=== PATIENT | female | born 1945 | race Caucasian/White ===

== ENCOUNTER 2021-12-04 10:39 | Observation (INO) | payer MEDICARE ==
[~2021-12-04] VITALS: Ht 165.1 cm; Wt 68.0 kg
[~2021-12-04 10:39] MED LIST: CEPHALEXIN500 MG PO; CIPRO500 MG OR; CRESTOR40 MG PO; DILTIAZEM180 M1 PO; EQ LANSOPRAZOLE15 MG PO; GLIPIZIDE10 MG PO; HEADACHE RELIEF PO; HUMULIN R1 M1 SC; HUMULIN R1 ML; HUMULIN R1 ML SC; HYDROCHLOROT25 MG PO; HYDROCO/APAP1 TA9 PO; ISOSORB MONO30 MG; ISOSORB MONO30 MG PO; ISOSORBIDE MONO60 MG PO; KEFLEX500 MG PO; KLOR-CON M2020 MEQ PO; LANTUS100 MG/ML SC; LASIX 40 MG40 MG/TAB PO; LASIX40 MG PO; LISINOPRIL20 MG PO; LORTAB 7.5 PO; LYRICA50 MG PO; LYRICA75 MG PO; METFORMIN1000 MG PO; METFORMIN500 MG PO; NAPROXEN375 MG OR; NEXIUM40 MG PO; NOVOLIN 70/30 SC; NOVOLIN R SC; PYRIDIUM200 MG OR
--- NOTE | 2021-12-04 11:10 | NUR ---
PATIENT ASSISTED OUT OF VEHICLE INTO WHEELCHAIR AND ESCORTED TO ROOM IN NO ACUTE DISTRESS. PATIENT TRANSFERRED TO [facility]. VSS. NOTIFIED OF PATIENT STATUS.
[2021-12-04] MEDS ORDERED: DICYCLOMINE10 MG PO (11:35)
[2021-12-04] MEDS ORDERED: METOPROLOL SUCC50 MG PO (11:35)
[2021-12-04] MEDS ORDERED: IRON325 M1 (11:36)
[2021-12-04] MEDS ORDERED: ELIQUIS5 MG PO (11:36)
[2021-12-04 12:02] LABS: HEMOGLOBIN 12.3 g/dl (12.0-16.0); IMMATURE GRANULOCYTES 0.4 % (0.0-5.0); MEAN CELL VOLUME 82.5 fL CALC (80.0-100.0); MEAN CORPUSCULAR HGB CONC 31.5 g/dL CAL (32.0-36.0); NEUT# 11.67 thou/uL (2.00-7.15); RED BLOOD COUNT 4.73 mill/uL (4.20-5.60); RED CELL DISTRI WIDTH 14.1 % (11.5-15.5)
[2021-12-04 12:19] LABS: ALBUMIN 3.3 g/dL (3.2-5.0); ALKALINE PHOSPHATASE 75 u/l (38-126); BUN 11 mg/dL (8-23); BUN/CREATININE RATIO 24 (12-20 (CALC)); CARBON DIOXIDE 29 mmol/l (22-30); CREATININE 0.5 mg/dL (0.5-1.0); GFR > 60 ML/MIN (>=60 (CALC)); GFR FOR AFR.AMER. > 60 ML/MIN (>=60 (CALC)); SGOT/AST 17 u/l (9-36); TOTAL PROTEIN 6.7 g/dL (6.3-8.2)
[2021-12-04 12:27] LABS: SODIUM 134 mmol/l (137-146)
[2021-12-04 12:28] LABS: ANION GAP 14 (6-22 (CALC)); BILIRUBIN, TOTAL 1.2 mg/dL (0.0-1.4); CHLORIDE 93 mmol/l (95-108); POTASSIUM 2.4 mmol/l (3.5-5.1)
[2021-12-04] MEDS ORDERED: BENICAR40 MG PO (15:10)
--- NOTE | 2021-12-04 16:21 | NUR ---
REPORT GIVEN TO HALIMA LAMA 290.
--- NOTE | 2021-12-04 17:10 | NUR ---
PT ARRIVED TO UNIT AT 1707 VIA STRETCHER WITH ER STAFF; TRANSPORTED TO [facility] AND PLACED ON AIRBORNE/CONTACT PRECAUTIONS FOR [facility]. ASSISTED HORIZONTALLY FROM STRETCHER TO BED WITH 4 PERSON ASSIST. DROWSY AND ORIENTED X 3. C/O 8/10 PAIN TO RIGHT ARM AND LEFT FOOT; ELEVATED ON PILLOWS. RESPIRATIONS EVEN AND UNLABORED ON OXYGEN 2L VIA NC; VSS. ASSESSMENT COMPLETED AT THIS TIME. ORIENTED TO ROOM AND CALL LIGHT SYSTEM. PLAN OF CARE DISCUSSED. PT ENCOURAGED TO VERBALIZE CONCERNS; STATES UNDERSTANDING. ASSISTED WITH SIPS OF COLD WATER. SAFETY MEASURES IN PLACE; CALL LIGHT WITHIN REACH.
[2021-12-04 17:20] VITALS: BP 115/60
[2021-12-04 19:00] VITALS: BP 128/65
[2021-12-04 22:23] VITALS: BP 126/58
[2021-12-05] VITALS (7 sets, daily range): BP systolic 97–151; BP diastolic 40–72
[2021-12-05 06:25] LABS: HEMATOCRIT 36.9 % (37.0-47.0); HEMOGLOBIN 11.5 g/dl (12.0-16.0); MEAN CELL VOLUME 84.8 fL CALC (80.0-100.0); MEAN CORPUSCULAR HGB 26.4 pG CALC (26.0-32.0); MEAN CORPUSCULAR HGB CONC 31.2 g/dL CAL (32.0-36.0); RED BLOOD COUNT 4.35 mill/uL (4.20-5.60); RED CELL DISTRI WIDTH 14.1 % (11.5-15.5)
[2021-12-05 06:39] LABS: ANION GAP 9 (6-22 (CALC)); BUN 13 mg/dL (8-23); BUN/CREATININE RATIO 31 (12-20 (CALC)); CARBON DIOXIDE 33 mmol/l (22-30); CHLORIDE 97 mmol/l (95-108); CREATININE 0.4 mg/dL (0.5-1.0); GFR > 60 ML/MIN (>=60 (CALC)); GFR FOR AFR.AMER. > 60 ML/MIN (>=60 (CALC)); MAGNESIUM 2.3 mg/dL (1.6-2.3); SODIUM 136 mmol/l (137-146)
--- NOTE | 2021-12-05 07:05 | NUR ---
REPORT FROM FORTUNATO TOMLINSON. ASSUMED PT CARE.
--- NOTE | 2021-12-05 07:55 | NUR ---
PT NOTED RESTING IN BED. ALERT AND ORIENTED X3. NO APPARENT DISTRESS NOTED. RESPIRATIONS EVEN AND UNLABORED, O2 @2L/M VIA NC, SAT 100%. PT RIGHT WRIST SWOLLEN, AND PAINFUL TO TOUCH, ELEVATED ON PILLOWS AT THIS TIME. DISCUSSED POC AND SAFETY. PT VERBALIZED UNDERSTANDING. CALL LIGHT WITHIN REACH. WILL CONTINUE TO MONITOR.
--- NOTE | 2021-12-05 08:56 | NUR ---
PT DAUGHTER CIERA CALLED FOR UPDATE, PT GAVE PERMISSION TO UPDATE DAUGHTER AT THIS TIME.
--- NOTE | 2021-12-05 12:10 | NUR ---
PHYSICIAN AT BEDSIDE TO DISCUSS POC.
--- NOTE | 2021-12-05 13:29 | NUR ---
4 RINGS SENT HOME WITH DAUGHTER PER PT REQUEST. 1 LARGE XOCHITL RING, 2 WEDDING RING AND BAND SET, AND 1 SOLID GOLD BAND OFF THUMB. WOOD LATHER MET DAUGHTER NICHOLAS CAPONE IN ER WAITING ROOM WITH RINGS.
[2021-12-05 14:33] LABS: C-REACTIVE PROTEIN 29.9 mg/dL (0-0.9)
[2021-12-05 16:03] LABS: URINE BILIRUBIN - DIPSTICK NEGATIVE (NEGATIVE); URINE COLOR DK. YELLOW; URINE GLUCOSE - DIPSTICK NEGATIVE (NEGATIVE); URINE KETONE Negative (NEGATIVE); URINE PROTEIN - DIPSTICK TRACE mg/dL (NEG-TRACE); URINE SPECIFIC GRAVITY 1.025
[2021-12-05 16:04] LABS: URINE BLOOD DIPSTICK NEGATIVE (NEGATIVE); URINE LEUK ESTERASE NEGATIVE (NEGATIVE); URINE NITRITE - DIPSTICK NEGATIVE (Negative)
--- NOTE | 2021-12-05 17:28 | NUR ---
PT RESTING IN BED. NO APPARENT DISTRESS NOTED. RESPIRATIONS EVEN AND UNLABORED. 02 @ 2L/M VIA NC. CALL LIGHT WITHIN REACH. WILL CONTINUE TO MONITOR.
--- NOTE | 2021-12-05 21:59 | NUR ---
PATIENT RESTING IN AT THIS TIME WITH O2 VIA NASAL CANNULA IN PLACE. ACCU-CHECK WAS 312. PATIENT MEDICATED WITH HUMALOG 7UNITS SQ PER HUMALOG SS COVERAGE PROTOCOL. PATIENT PROVIDED WITH HS SNACK. C/O HEADACHE, LEFT FOOT AND RIGHT HAND PAIN. 6/10 ON PAIN SCALE. MEDICATED WITH TYLENOL 650MG PO FOR PAIN. SAFFETY PRECAUTIONS REINFORCED. CALL LIGHT IN REACH. WILL CONT TO MONITOR.
--- NOTE | 2021-12-06 01:26 | NUR ---
PATIENT RESTING IN BED AT THIS TIME WITH HOB ELEVATED AND EYES CLOSED. RESPS ARE EVEN AND UNLABORED WITH O2 VIA NASAL CANNULA IN PLACE. TELE MONITOR IN PLACE WITH LAST READING BEING A-FIB-66. IVF PATENT AND INFUSING VIA LEFT HAND AT 75CC/HR, CALL LIGHT IN REACH. WILL CONT TO MONITOR.
[2021-12-06 04:36] VITALS: BP 123/63
--- NOTE | 2021-12-06 05:22 | NUR ---
PATIENT RESTING IN BED AT THIS TIME-INCONT OF URINE-[facility] PROVIDED WITH SOAP AND WATER. O2 VIA NASAL CANNULA IN PLACE. IVF PATENT AND INFUSING VIE LEFT HAND AT 75CC/HR. SITE REMAINS HEALTHY. SALINE LOCK TO LAC INTACT. TELE MONITOR IN PLACE-LAST READING WAS AFIB-62. LEFT FOOT And right arm elevated ON PILLOW. CALL LIGHT IN REACH. WILL CONT TO MONITOR.
[2021-12-06 05:47] LABS: HEMATOCRIT 33.4 % (37.0-47.0); HEMOGLOBIN 10.2 g/dl (12.0-16.0); IMMATURE GRANULOCYTES 0.3 % (0.0-5.0); MEAN CELL VOLUME 85.2 fL CALC (80.0-100.0); MEAN CORPUSCULAR HGB CONC 30.5 g/dL CAL (32.0-36.0); NEUT# 6.78 thou/uL (2.00-7.15); RED BLOOD COUNT 3.92 mill/uL (4.20-5.60); RED CELL DISTRI WIDTH 14.1 % (11.5-15.5)
[2021-12-06 06:21] LABS: ALKALINE PHOSPHATASE 76 u/l (38-126); ANION GAP 10 (6-22 (CALC)); BUN 15 mg/dL (8-23); BUN/CREATININE RATIO 35 (12-20 (CALC)); CARBON DIOXIDE 29 mmol/l (22-30); CHLORIDE 99 mmol/l (95-108); CREATININE 0.4 mg/dL (0.5-1.0); GFR > 60 ML/MIN (>=60 (CALC)); GFR FOR AFR.AMER. > 60 ML/MIN (>=60 (CALC)); POTASSIUM 3.4 mmol/l (3.5-5.1); SGOT/AST 12 u/l (9-36); SODIUM 135 mmol/l (137-146); TOTAL PROTEIN 5.8 g/dL (6.3-8.2)
[2021-12-06 06:33] LABS: ALBUMIN 2.6 g/dL (3.2-5.0); BILIRUBIN, TOTAL 0.4 mg/dL (0.0-1.4); C-REACTIVE PROTEIN 20.1 mg/dL (0-0.9)
--- NOTE | 2021-12-06 07:00 | NUR ---
REPORT FROM PB TOMLINSON. ASSUMED PT CARE.
--- NOTE | 2021-12-06 07:45 | NUR ---
REPORT FROM PB TOMLINSON. ASSUMED PATIENT CARE.
[2021-12-06 08:17] VITALS: BP 149/69
--- NOTE | 2021-12-06 11:44 | NUR ---
S- pt reported her son had to help her walk the last few days at home. Stated she was feeling better than yesterday.. 0- pt resting in bed with R hand supported on pillow and heels off loaded. She per AROM to BLEs in supine x 10 reps including DF/PF (L decreased due to pain), SAQ, heelslides, hip abd. Pt moved supine to sit with mod assist, mod to scoot. She was able to maintain her balance in static sitting. Mod/max for transfer to chair secondary to decreasee ability to bear wt on LLE. Pt was left in chair with legs elevated, call martin and bedside tray in reach and nursing aware. BP 11/51 to 125/54, HR 60 to 75 and 02 sats 96 to 100%. Pt reported feeling good to sit OOB. Time spent with pt 40 min. A- Pt mobility improved to day but limited by pain. [facility] 9 ECF P- Will follow per POC.
[2021-12-06 11:45] VITALS: BP 119/51
--- NOTE | 2021-12-06 11:48 | NUR ---
PHYSICIAN AT BEDSIDE.
--- NOTE | 2021-12-06 15:42 | NUR ---
Patient awake and alert in bed, expressed desire to eat some jelly and she successfully held jell-o cup in L hand and scooped with her R hand to bring to mouth. Gentle wrist and digits ROM performed to prevent contractures.
[2021-12-06 16:20] VITALS: BP 138/58
--- NOTE | 2021-12-06 18:50 | NUR ---
PT RESTING IN BED. NO APPARENT DISTRESS NOTED. RESPIRATIONS EVEN AND UNLABORED. 02 @ 2L/M VIA NC. CALL LIGHT WITHIN REACH. WILL CONTINUE TO MONITOR.
[2021-12-06 19:00] VITALS: BP 142/60
[2021-12-07] VITALS: BP 133/72
[2021-12-07 04:00] VITALS: BP 162/68
[2021-12-07 05:49] LABS: HEMATOCRIT 36.2 % (37.0-47.0); HEMOGLOBIN 11.1 g/dl (12.0-16.0); MEAN CELL VOLUME 85.6 fL CALC (80.0-100.0); MEAN CORPUSCULAR HGB 26.2 pG CALC (26.0-32.0); MEAN CORPUSCULAR HGB CONC 30.7 g/dL CAL (32.0-36.0); RED BLOOD COUNT 4.23 mill/uL (4.20-5.60); RED CELL DISTRI WIDTH 13.7 % (11.5-15.5)
[2021-12-07 05:56] LABS: ALBUMIN 2.9 g/dL (3.2-5.0); ALKALINE PHOSPHATASE 78 u/l (38-126); ANION GAP 10 (6-22 (CALC)); BILIRUBIN, TOTAL 0.4 mg/dL (0.0-1.4); BUN 14 mg/dL (8-23); BUN/CREATININE RATIO 30 (12-20 (CALC)); CARBON DIOXIDE 30 mmol/l (22-30); CHLORIDE 101 mmol/l (95-108); CREATININE 0.5 mg/dL (0.5-1.0); GFR > 60 ML/MIN (>=60 (CALC)); GFR FOR AFR.AMER. > 60 ML/MIN (>=60 (CALC)); MAGNESIUM 1.8 mg/dL (1.6-2.3); POTASSIUM 3.2 mmol/l (3.5-5.1); SGOT/AST 14 u/l (9-36); SODIUM 137 mmol/l (137-146); TOTAL PROTEIN 6.1 g/dL (6.3-8.2)
[2021-12-07 08:58] VITALS: BP 166/71
[2021-12-07 11:00] VITALS: BP 128/58
--- NOTE | 2021-12-07 13:03 | NUR ---
Patient Alert and oriented X3. No resoiratory distress at this note time. Educated patient avoid medications and nursing plan for today. Patient refer understanding. Medications is administered according to MAR. Preventive rouds are performed every hour for fall precaution an patient satisfaction.
--- NOTE | 2021-12-07 13:11 | NUR ---
S- Pt stated she was not doing well today. Lt foot doing better. 0- Pt resting in bed. She was supine with LE crossed. Pt performed AROM ex to BLEs in supine x10-15 reps. L ankle DF improved. Pt refused bed mobility or OOB to chair, stating she was not up to it. PLANOGRAPH OPERATOR reported pt moving for ADLs. BP 128/58, HR 76 02sat 96% Time spent with pt 25 min. A- AMPAC unchanged P- Will follow per POC.
[2021-12-07 16:00] VITALS: BP 131/73
--- NOTE | 2021-12-07 16:16 | NUR ---
Pt in supine with R arm elevated. PROM provided to prevent contractures and gentle joint mobs provided to increase pain. Manual therapy at distal radius to relieve pain. AROM- opposition with alternating digits, and composite fisting to promote improved grasping.
[2021-12-07 19:00] VITALS: BP 141/65
--- NOTE | 2021-12-07 20:30 | NUR ---
RECIEVED REPORT FROM DAVI PORRAS
--- NOTE | 2021-12-07 21:03 | NUR ---
PT RESTING IN SEMI FOWLERS POSITION. PT IS A/OX3. ASSESSMENT AND V ITALS COMPLETED. RESPIRTATIONS ARE EVEN AND UNLABORED ON 2L NC. LUNG SOUNDS ARE CLEAR. HEART RHYTHM NORMAL. BOWEL SOUNDS ARE ACTIVE, LBM 12/07/21. PEDAL PULSES WEAK. #22G LH AND #20G LAC FLUSHED, SITE APPEARS HEALTHY AND PATENT. SKIN INTACT. PT DENIES OF ANY PAINS OR DISCOMFORTS AT THIS TIME. AIR/CONTACT PRECAUTIONS IN PLACE. ALL SAFTEY PRECAUTIONS ARE IN PLACE WITH CALL LIGHT IN REACH.WILL CONTINUE TO MONITOR.
[2021-12-08] VITALS (8 sets, daily range): BP systolic 132–180; BP diastolic 63–84
--- NOTE | 2021-12-08 | NUR ---
PT SLEEPING IN SEMI FOWLERS POSITION. RESPIRATIONS ARE EVEN AND UNLABORED ON 2L NC. TELE MONITORING IN PLACE. NO S/S OF ANY DISTRESS. ALL SAFTEY PRECAUTIONS ARE IN PLACE WITH CALL LIGHT IN REACH. WILL CONTINUE TO MONITOR.
--- NOTE | 2021-12-08 04:00 | NUR ---
BP ELEVATED, TO BE REASSESSED. RESPIRATIONS REMAINS EVEN AND UNLABORED ON 2L NC. PT CONTINUES TO REMOVED O2, PT RE-EDUCATED MULTIPLE TIMES ON NEED TO KEEP ON OXYGEN. TELE MONITORING IN PLACE. #22G LH AND #20G LAC INFUSING WITH IVF PER ORDER, SITE REMAINS PATENT. PT DENIES OF ANY ADDITIONAL NEEDS. ALL SAFTEY PRECAUTIONS ARE IN PLACE WITH CALL LIGHT IN REACH. WILL CONTINUE TO MONITOR
--- NOTE | 2021-12-08 04:58 | NUR ---
BP REMAINS ELEVATED. WRITTEN ORDER FOR APRESOLINE SBP>170 FROM LESLYE YANG. TO BE ADMINISTERED BY DAVI TUBBS.
[2021-12-08 05:56] LABS: HEMATOCRIT 35.9 % (37.0-47.0); HEMOGLOBIN 11.1 g/dl (12.0-16.0); IMMATURE GRANULOCYTES 0.3 % (0.0-5.0); MEAN CELL VOLUME 84.3 fL CALC (80.0-100.0); MEAN CORPUSCULAR HGB 26.1 pG CALC (26.0-32.0); MEAN CORPUSCULAR HGB CONC 30.9 g/dL CAL (32.0-36.0); NEUT# 4.21 thou/uL (2.00-7.15); RED BLOOD COUNT 4.26 mill/uL (4.20-5.60)
--- NOTE | 2021-12-08 06:00 | NUR ---
APRESOLINE IV ADMINSTERED BY WADE RN
[2021-12-08 06:15] LABS: ALBUMIN 2.8 g/dL (3.2-5.0); ALKALINE PHOSPHATASE 83 u/l (38-126); ANION GAP 11 (6-22 (CALC)); BUN 13 mg/dL (8-23); BUN/CREATININE RATIO 31 (12-20 (CALC)); C-REACTIVE PROTEIN 5.1 mg/dL (0-0.9); CARBON DIOXIDE 29 mmol/l (22-30); CHLORIDE 102 mmol/l (95-108); CREATININE 0.4 mg/dL (0.5-1.0); GFR > 60 ML/MIN (>=60 (CALC)); GFR FOR AFR.AMER. > 60 ML/MIN (>=60 (CALC)); POTASSIUM 3.5 mmol/l (3.5-5.1); SGOT/AST 14 u/l (9-36); SODIUM 138 mmol/l (137-146); TOTAL PROTEIN 6.1 g/dL (6.3-8.2)
[2021-12-08 06:17] LABS: BILIRUBIN, TOTAL 0.6 mg/dL (0.0-1.4)
--- NOTE | 2021-12-08 14:27 | NUR ---
Alert and oriented X3. No distress respiratory at this moment.Educated patient about medications and nursing plan for today. Patient refer undernstand. Preventive rouds every hour for fall precautions and patient satisfaction.
--- NOTE | 2021-12-08 15:27 | NUR ---
S- Pt stated she told MD she was going to walk with therapy today. 0- Pt was in bed with nursing providing brief and bed clean up. She rolled side to side with min assist. Supine to sit with min assist of upper body. She was able to scoot herself to edge of bed. Sitting balance was F+. Pt transferred to chair with min assist. Gait with RW x 30' with CGA. Posture was flexed with fair gait pattern. Pt was left in chair with call martin and tray in reach. Gait belt and non skid socks in place during mobility. BP 150/66- 135/69 HR 83-93%. 02 sats 96% with [address]. Pt did not voice pain with wt bearing on LLE, R hand improving. Time spent with pt 30 min. A- Pt able to ambulate today with RW. [facility] 13 ECF P- will follow per POC.
--- NOTE | 2021-12-08 16:28 | NUR ---
Chanell seated in recliner. She completed self care tasks seated upright in recliner and used her R hand to complete toothbrushing (gums). Wrist and digits PROM and gentle joint mobs provided to improve range. Decreased pain with ROM at this time. AM-PAC score 16 - pt would benefit from return to home with OP or HH services for R wrist and L foot.
--- NOTE | 2021-12-08 19:00 | NUR ---
RECIEVED REPORT FROM DAVI PENALOZA
--- NOTE | 2021-12-08 20:50 | NUR ---
PT RESTING IN SEMI FOWLERS POSITION. PT IS A/OX3. ASSESSMENT COMPLETED. RESPIRATIONS ARE EVEN AND UNLABORED ON ROOM AIR, 93-95%. 2L NC AT BEDSIDE PRN. LUNG SOUNDS ARE CLEAR. HEART RHYTHM IRREGULAR WITH TELE IN PLACE, AFIB PER ER MONITORING. BOWEL SOUNDS ARE ACTIVE, LBM 12/07/21. #22G RH INFUSING WITH IVF PER ORDER, SITE PATENT. #20G LAC FLUSHED, SITE PATENT. SKIN INTACT. 1+ EDEMA NOTED TO BLE. PT COMPLAINS OF 5/10 GENERALIZED PAIN, PT MEDICATED WITH TYLENOL. GLUCOSE REUSLTING IN 292, COVERAGE ADMINISTERED PER PROTOCAL. DIET GINERAL AND WARM BLANKET PROVIDED. ALL SAFTEY PRECAUTIONS ARE IN PLACE WITH CALL LIGHT IN REACH. AIR/CONTACT. PRECAUTIONS IN PLACE. WILL CONTINUE TO MONITOR.
[2021-12-09] VITALS (7 sets, daily range): BP systolic 158–187; BP diastolic 68–85
--- NOTE | 2021-12-09 00:27 | NUR ---
PT SLEEPING IN LOW FOWLERS POSITION. REPSIRATIONS ARE EVEN AND UNLABORED ON ROOM AIR. 2L NC AT BEDSIDE PRN. IVF INFUSING PER ORDER, SITE REMAINS HEALTHY AND PATENT. TELE MONITORING IN PLACE. NO SIGNS OF ANY DISTRESS NOTED. ALL SAFTEY PRECAUTIONS ARE IN PLACE WITH CALL LIGHT IN REACH. AIR/CONTACT PRECAUTIONS IN PLACE. WILL CONTINUE TO MONITOR
--- NOTE | 2021-12-09 03:56 | NUR ---
REPORTED BP OF 175/85. PT REMAINS RESTING IN SEMI FOWLERS POSITION. RESPIRATIONS ARE EVEN AND UNLABORED ON ROOM AIR. 2L NC AT BEDSIDE PRN. #22G RH INFUSING WITH IVF PER ORDER. #20G LAC REMAINS PATENT. TELE MONITORING IN PLACE. PT DENIES OF ANY PAINS OR DISCOMFORTS AT THSI TIME. ALL SAFTEY PRECAUTIONS ARE IN PLACE WITH CALL LIGHT IN REACH. WILL CONTINUE TO MONITOR
--- NOTE | 2021-12-09 04:46 | NUR ---
REASSESSMENT OF BP RESULTING IN 162/74, HR 84. PT REMAISN SLEEPING INS KIZZY FOWLERS POSITION.
--- NOTE | 2021-12-09 05:40 | NUR ---
#20G LAC REMOVED WITH CATH STILL INTACT PER PT REQUEST TO TO DISCOMFORTS.
--- NOTE | 2021-12-09 05:49 | NUR ---
IV FLUIDS COMPLETED. NONE LOADED IN PIXIS. PRISON KEEPER INFORMED. ENVIRONMENTAL REMEDIATION CONSULTANT INFROMED THAT ORDERED IVF WHERE NOT AVAILABLE IN ANY OTHER DEPARTMENTS. PHARMACY IS TO BE CONTACT ONCED ARRIVED.
[2021-12-09 05:58] LABS: HEMATOCRIT 38.9 % (37.0-47.0); HEMOGLOBIN 11.8 g/dl (12.0-16.0); MEAN CELL VOLUME 86.1 fL CALC (80.0-100.0); MEAN CORPUSCULAR HGB 26.1 pG CALC (26.0-32.0); MEAN CORPUSCULAR HGB CONC 30.3 g/dL CAL (32.0-36.0); RED BLOOD COUNT 4.52 mill/uL (4.20-5.60)
[2021-12-09 06:23] LABS: ANION GAP 12 (6-22 (CALC)); BUN 15 mg/dL (8-23); BUN/CREATININE RATIO 33 (12-20 (CALC)); CARBON DIOXIDE 27 mmol/l (22-30); CHLORIDE 104 mmol/l (95-108); CREATININE 0.4 mg/dL (0.5-1.0); GFR > 60 ML/MIN (>=60 (CALC)); GFR FOR AFR.AMER. > 60 ML/MIN (>=60 (CALC)); MAGNESIUM 1.7 mg/dL (1.6-2.3); SODIUM 139 mmol/l (137-146)
--- NOTE | 2021-12-09 08:35 | NUR ---
PT IN BED. A&O X2. UNLABORED RESPIRATIONS; SMALL CRACKLES AT THE BASE OF LUNGS. HEART RHYTHM AND HEART RATE IRREGULAR. ACTIVE BOWEL SOUNDS X4 QUADRANTS. PT DENIES PAIN AT THIS MOMENT. CALL LIGHT WITHIN REACH.
--- NOTE | 2021-12-09 12:30 | NUR ---
PT SITTING HAVING LUNCH. O2 @ 2L; O2 SATURATION 96%. NO DISTRESS NOTED. PT DENIES PAIN AT THE MOMENT. CALL LIGHT WITHIN REACH.
--- NOTE | 2021-12-09 17:45 | NUR ---
PT SITTING HAVING DINNER, REQUESTED ICE. NO DISTRESS NOTED. PT DENIES PAIN AT THE MOMENT. CALL LIGHT WITHIN REACH.
--- NOTE | 2021-12-09 19:00 | NUR ---
RECIEVED REPORT FROM DAVI KHAN AND JOLENE FLOWRES
--- NOTE | 2021-12-09 19:00 | NUR ---
RECIVED REPORT FROM JOLENE FLOWERS
--- NOTE | 2021-12-09 20:10 | NUR ---
PT RESTING IN SEMI FOWLERS POSITION. PT IS A/OX3. ASSESSMENT COMPLETED. RESPIRATIONS ARE EVEN AND UNLABORED WITH NO DISTRESS NOTED ON 2L NC. LUNG SOUNDS DIMINISHED IN LOWER LOBES. HEART RHYTHM IRREGUALR WITH TELE IN PLACE, AFIB PER ER MONITORING.BOWEL SOUNDS ACTIVE, LBM 12/08/21. #22G RH INFUSING WITH IVF PER ORDER, SITE REMAINS HEALTHY AND PATENT. PULSES STRONG. SKIN INTACT. EDEMA AND WEAKNESS NOTED TO RIGHT ARM, PT STATES ARM IS SORE. PT REFUSES ANY PAIN MEDICATIONS. FRESH WATER AND WASHCLOTH PROVIDED. ALL SAFTEY PRECAUTIONS ARE IN PLACE WITH CALL LIGHT IN REACH. AIR/CONTACT PRECAUTIONS IN PLACE. WILL CONTINUE TO MONITOR
--- NOTE | 2021-12-09 20:20 | NUR ---
GLUCOSE RESULTING IN 269, COVERAGE ADMINISTERED PER PROTOCAL.
--- NOTE | 2021-12-09 23:56 | NUR ---
PT SLEEPING IN SEMI FOWLERS POSITION. RESPIRATIONS REMAINS EVEN AND UNLABORED, 2L NC REAPPLIED. PT CONTINUES TO REMOVED. #22G RH REMAINS INVFUSING WITH IVF, SITE PATENT. TELE MONITORING IN PLACE. ALL SAFTEY PRECUATIONS ARE IN PLACE CALL LIGHT IN REACH. WILL CONTINUE TO MONITOR
[2021-12-10] VITALS (10 sets, daily range): BP systolic 130–190; BP diastolic 59–83
--- NOTE | 2021-12-10 01:00 | NUR ---
REPORT OF ELEVATED BP FROM AID. UPON REASSESSMENT, BP 184/79, HR 65.PT REMAINS RESTING IN SEMI FOWLERS POSITION. ASYMPTOMATIC. PT TO BE MEDICATED BY DAVI AMBRIZ PER EMAR.
--- NOTE | 2021-12-10 01:20 | NUR ---
APRESOLINE ADMINISTERED BY DAVI AMBRIZ AT THIS TIME.
--- NOTE | 2021-12-10 02:14 | NUR ---
PT APPEARS VERY FLUSHED IN THE FACED. TEMP RESULTING IN 98.8. PT DENIES OF ANY ITCHING OR HIVES. PT STATES SHE DID GET A LITTLE SOB AND PALPATATIONS BUT HAS SUBSIDED. PT REMAINS AFIB 70'S ON TELE MONITORING. BP 139/64, HR 74, O2 97% ON 2L NC. RT CALLED FOR EKG. COOL WASH CLOTH PLACED ON FOREHEAD. PT DENIES OF ANY DISTRESSES OTHER THAN BEING FLUSHED AT THIS TIME. ALL SAFTEY PRECAUTIONS ARE IN PLACE WITH CALL LIGHT IN REACH. WILL CONTINUE TO MONITOR.
--- NOTE | 2021-12-10 02:19 | NUR ---
ABELINO RT AT BEDSIDE COMPLETING EKG.
--- NOTE | 2021-12-10 02:35 | NUR ---
PT RESTING IN SEMI FOWLERS POSITION.RESPIRATIONS EVEN AND UNLABORED ON 2L NC. REASSESSMENT OF VITALS RESULTING IN 154/66,HR 81. REMAINS AFIB ON TELE. EKG SHOWS AFIB. PT STATES COOL WASH CLOTH HAS HELPED. PT FIRST STATES SHE HAS NOT PAIN BUT THEN C/O OF LEFT SHOULDER AND RIB PAIN. WHEN QUESTIONING PAIN SECOND TIME, PT STATES " I DONT HAVE ANY RIGHT NOW." LAB INFORMED OF STAT TROPONIN. DENIES DENIES OF ANY SOB OR PALPATATIONS AT THIS TIME. PT INFROMED TO CALL IF PALPATIONS REACCURE. PT VERBALIZED UNDERSTANDING. WILL CONTINUE TO MONITOR
--- NOTE | 2021-12-10 03:07 | NUR ---
LAB AT BEDSIDE
[2021-12-10 03:25] LABS: HEMATOCRIT 37.6 % (37.0-47.0); HEMOGLOBIN 11.5 g/dl (12.0-16.0); MEAN CELL VOLUME 85.3 fL CALC (80.0-100.0); MEAN CORPUSCULAR HGB 26.1 pG CALC (26.0-32.0); MEAN CORPUSCULAR HGB CONC 30.6 g/dL CAL (32.0-36.0); RED BLOOD COUNT 4.41 mill/uL (4.20-5.60); RED CELL DISTRI WIDTH 14.4 % (11.5-15.5)
[2021-12-10 03:35] LABS: ALBUMIN 3.1 g/dL (3.2-5.0); ALKALINE PHOSPHATASE 92 u/l (38-126); ANION GAP 13 (6-22 (CALC)); BILIRUBIN, TOTAL 0.5 mg/dL (0.0-1.4); BUN 17 mg/dL (8-23); BUN/CREATININE RATIO 33 (12-20 (CALC)); CARBON DIOXIDE 25 mmol/l (22-30); CHLORIDE 104 mmol/l (95-108); CREATININE 0.5 mg/dL (0.5-1.0); GFR > 60 ML/MIN (>=60 (CALC)); GFR FOR AFR.AMER. > 60 ML/MIN (>=60 (CALC)); POTASSIUM 4.2 mmol/l (3.5-5.1); SODIUM 138 mmol/l (137-146); TOTAL PROTEIN 6.4 g/dL (6.3-8.2)
[2021-12-10 03:36] LABS: SGOT/AST 25 u/l (9-36)
--- NOTE | 2021-12-10 03:38 | NUR ---
PT RESTING IN SEMI FOWLERS POSITION. RESPIRATIONS REMAINS EVEN AND UNLABORED. FACE REMAINS FLUSHED BUT MUCH IMPROVED. PT DENIES OF ANY PAINS. WARM BLANKET PROVIDED. PT DENIES OF ANY ADDITIONAL NEEDS. ALL SAFTEY PRECAUTIONS ARE IN PLACE WITH CALL LIGHT IN REACH. WILL CONTINUE TO MONITOR.
--- NOTE | 2021-12-10 04:09 | NUR ---
TROP NEGATIVE. DR ALANIS INFORMED OF PT STATUS AND RESULTS. NO NEW ORDERS OBTAINED. PT REMAINS RESTING IN SEMI FOWLERS POSITION. NO COMPLAINTS AT THIS TIME.TELE MONITORING REMAINS IN PLACE. ALL SAFTEY PRECAUTIONS IN PLACE. CALL LIGHT IN REACH.WILL CONTINUE TO MONITOR.
--- NOTE | 2021-12-10 19:00 | NUR ---
REPORT RECEIVED FROM Trena MCKINNEY RN, CARE OF PT ASSUMED QT THIS TIME.
[2021-12-11 00:34] VITALS: BP 184/85
--- NOTE | 2021-12-11 04:50 | NUR ---
ELEVATED NIBP REPORTED TO DR. ALANIS, AM NIBP 194/93mmHg AFIB 60'S ON MONITOR. PT ASYMPTOMATIC. SUGGEST ORDER FOR PRN ANTIHYPERTENSIVE. ORDER RECEIVED FOR IV ENALAPRIL 1.25MG IV PRN Q8H FOR SBP >180mmHg IF CREATININE <1.5mg/dl. SERUM CREAT 0.5MG/DL on 12/10/21 AM LABS. SEE E-MAR FOR ADMINISTRATION DETAILS.
[2021-12-11 05:17] VITALS: BP 194/93
[2021-12-11 05:38] LABS: HEMATOCRIT 37.2 % (37.0-47.0); HEMOGLOBIN 11.2 g/dl (12.0-16.0); IMMATURE GRANULOCYTES 1.2 % (0.0-5.0); MEAN CELL VOLUME 85.5 fL CALC (80.0-100.0); MEAN CORPUSCULAR HGB 25.7 pG CALC (26.0-32.0); MEAN CORPUSCULAR HGB CONC 30.1 g/dL CAL (32.0-36.0); NEUT# 6.47 thou/uL (2.00-7.15); RED BLOOD COUNT 4.35 mill/uL (4.20-5.60); RED CELL DISTRI WIDTH 14.5 % (11.5-15.5)
[2021-12-11 06:01] LABS: ALBUMIN 3.1 g/dL (3.2-5.0); ALKALINE PHOSPHATASE 81 u/l (38-126); ANION GAP 11 (6-22 (CALC)); BILIRUBIN, TOTAL 0.4 mg/dL (0.0-1.4); BUN 13 mg/dL (8-23); BUN/CREATININE RATIO 26 (12-20 (CALC)); C-REACTIVE PROTEIN 1.8 mg/dL (0-0.9); CARBON DIOXIDE 26 mmol/l (22-30); CHLORIDE 106 mmol/l (95-108); CREATININE 0.5 mg/dL (0.5-1.0); GFR > 60 ML/MIN (>=60 (CALC)); GFR FOR AFR.AMER. > 60 ML/MIN (>=60 (CALC)); MAGNESIUM 1.7 mg/dL (1.6-2.3); POTASSIUM 3.8 mmol/l (3.5-5.1); SGOT/AST 17 u/l (9-36); SODIUM 139 mmol/l (137-146); TOTAL PROTEIN 6.4 g/dL (6.3-8.2)
[2021-12-11 06:27] VITALS: BP 154/65
[2021-12-11 07:10] VITALS: BP 148/68
--- NOTE | 2021-12-11 07:10 | NUR ---
PATIENT RESTING IN BED AT THIS TIME ALERT PATIENT DENIES ANY PAIN CURRENTLY. SHUCKER DONE SEE INTERVENTIONS. SIDERRAILS ARE UP X 2 CALL LIGHT WIHTIN REACH TELE MONITOR ON AND BEING MONITORED BY ED. WILL CONTINUE TO MONITOR.
[2021-12-11 10:45] VITALS: BP 150/64
--- NOTE | 2021-12-11 10:46 | NUR ---
SIX MINUTE WALK TEST DONE AT THIS TIME. PATIENT SITTING IN CHAIR AND SPO2 IS 99% ON ROOM AIR. PATIENT THEN WALKED IN ROOM AND TO BATHROOM AND BACK TO CHAIR AND SPO2 ON RA IS 94%. AFTER REST PATIENT SPO2 ON ROOM AIR IS 97% ALL RESULTS GIVEN TO DAPHNE FISCHER AT THIS TIME.
--- NOTE | 2021-12-11 11:14 | NUR ---
PATIENT SITTING UP IN CHAIR AT THIS TIME DENEIS ANY NEEDS AND OR PAIN SIDERAILS ARE UP CALL LIGHT WITHIN REACH. TELE MONIOTOR IN PLACE AND BEING MONITORED BY ED. WILL CONTINUE TO MONITOR.
--- NOTE | 2021-12-11 11:58 | NUR ---
S- Pt stated she has had difficulty sleeping. 0- Pt was OOB in chair. She transferred to bed with management of lines and supervision. She was able to roll side to side with supervision. Supine to sit with supervision using bed rail, she reports have a bed rail at home. Gait 2 x 30' in room with RW and supervision/line management. She was able to get up and down from chair with verbal cues only for safety. 02 sats 99-97-96, BP 139/75, HR mid 60s. Pt stated she wants to return home with her and will have assist from family. Time spent with pt 40 min. 0- [facility] 14 home with home health P- will follow per POC
[2021-12-11] MEDS ORDERED: LASIX40 MG PO (14:19)
[2021-12-11] MEDS ORDERED: MEDDOSEPAK PO (14:20)
--- NOTE | 2021-12-11 15:06 | NUR ---
PATIENT D/C AT THIS TIME. PATIENT VERBALIZES UNDERSTANDING OF D/C INSTRUCTIONS PATIENT REMINDED THAT [facility] WOULD REACH OUT TO HER TO SET UP TIME WHEN THEY WOULD BE THERE TO SEE HER AT HOME. IV REMOVED AND TELE REMOVED AND MARINO IN ED CALLED.
--- NOTE | 2021-12-11 15:27 | NUR ---
Discharge instructions given. Patient verbalizes understanding of same. Discharged in stable condition via Wheelchair to Home with family. All belongings sent with pt. PATIENT UNDERSTANDS D/C ORDERS AND PATIENT GIVEN INFORMATION TO WHEN [facility] WILL BE CONTACTING HER TO SET UP VISIT.
== END 2021-12-11 15:26 | disposition home health service (06) ==
LOC: ED 10:39 → ED-I 13:38 → ED 14:04 → MS2 14:05
PROVIDERS: Family Medicine; Nurse Practitioner; Nurse Practitioner Family; ADMIT Hospitalist; ATTEND Hospitalist
DX: U07.1 COVID-19 (principal); E87.6 Hypokalemia; E87.2 Acidosis; M10.09 Idiopathic gout, multiple sites; I11.0 Hypertensive heart disease with heart failure; I50.9 Heart failure, unspecified; E11.42 Type 2 diabetes mellitus with diabetic polyneuropathy; E78.5 Hyperlipidemia, unspecified; M77.32 Calcaneal spur, left foot; I25.10 Atherosclerotic heart disease of native coronary artery without angina pectoris; I48.20 Chronic atrial fibrillation, unspecified; Z91.81 History of falling; Z95.1 Presence of aortocoronary bypass graft; Z79.84 Long term (current) use of oral hypoglycemic drugs; Z79.01 Long term (current) use of anticoagulants
CPT/HCPCS: G0378; J3475

== ENCOUNTER 2021-12-20 16:21 | Observation (INO) | payer MEDICARE ==
[~2021-12-20] VITALS: Ht 165.1 cm; Wt 67.0 kg
[~2021-12-20 16:21] MED LIST changes: +BENICAR40 MG PO; +DICYCLOMINE10 MG PO; +ELIQUIS5 MG PO; +IRON325 M1; +LYRICA25 MG PO; +MEDDOSEPAK PO; +METOPROLOL SUCC50 MG PO
--- NOTE | 2021-12-20 16:40 | NUR ---
PATIENT TO ROOM VIA WC. BEDSIDE TRIAGE COMPLETED
[2021-12-20 17:32] LABS: GFR > 60 ML/MIN (>=60 (CALC)); GFR FOR AFR.AMER. > 60 ML/MIN (>=60 (CALC))
[2021-12-20 17:40] LABS: IMMATURE GRANULOCYTES 0.4 % (0.0-5.0); MEAN CELL VOLUME 83.2 fL CALC (80.0-100.0); MEAN CORPUSCULAR HGB 25.6 pG CALC (26.0-32.0); MEAN CORPUSCULAR HGB CONC 30.8 g/dL CAL (32.0-36.0); NEUT# 12.23 thou/uL (2.00-7.15); RED BLOOD COUNT 5.43 mill/uL (4.20-5.60); RED CELL DISTRI WIDTH 15.1 % (11.5-15.5)
--- NOTE | 2021-12-20 17:40 | NUR ---
PT RESTING ON ED BED, WARM BLANKET PROVIDED. PT STABLE.
[2021-12-20 17:46] LABS: HEMATOCRIT 45.2 % (37.0-47.0); HEMOGLOBIN 13.9 g/dl (12.0-16.0)
[2021-12-20 17:53] LABS: ALKALINE PHOSPHATASE 108 u/l (38-126); BUN 31 mg/dL (8-23); BUN/CREATININE RATIO 36 (12-20 (CALC)); CARBON DIOXIDE 30 mmol/l (22-30); CREATININE 0.8 mg/dL (0.5-1.0); GFR > 60 ML/MIN (>=60 (CALC)); GFR FOR AFR.AMER. > 60 ML/MIN (>=60 (CALC)); LIPASE 26 u/l (23-300); POTASSIUM 3.4 mmol/l (3.5-5.1); SGOT/AST 25 u/l (9-36); SODIUM 134 mmol/l (137-146)
[2021-12-20 17:55] LABS: ALBUMIN 4.2 g/dL (3.2-5.0); ANION GAP 16 (6-22 (CALC)); BILIRUBIN, TOTAL 1.1 mg/dL (0.0-1.4); CHLORIDE 91 mmol/l (95-108); TOTAL PROTEIN 8.2 g/dL (6.3-8.2)
--- NOTE | 2021-12-20 18:30 | NUR ---
SPOKE WITH PT'S DAUGHTER, CIERA AND GAVE UPDATE. DAUGHTER ASKS FOR CALL IF PT IS NOT ADMITTED. [phone]
--- NOTE | 2021-12-20 18:35 | NUR ---
PT ASSISTED ONTO BED KELLY TO PROVIDE A URINE SAMPLE. PT REPORTS FEELING TOO WEAK TO STAND AT THIS TIME.
--- NOTE | 2021-12-20 19:05 | NUR ---
REPORT GIVEN TO ONCOMING RN FOR TRANSITION OF CARE. PT PROVIDED WITH BOTTLE OF WATER. PT STABLE AT THIS TIME.
[2021-12-20 19:43] LABS: URINE BILIRUBIN - DIPSTICK NEGATIVE (NEGATIVE); URINE BLOOD DIPSTICK NEGATIVE (NEGATIVE); URINE COLOR YELLOW; URINE GLUCOSE - DIPSTICK NEGATIVE (NEGATIVE); URINE KETONE NEGATIVE (NEGATIVE); URINE LEUK ESTERASE NEGATIVE (NEGATIVE); URINE PH 6.5 (4.5-8.0); URINE PROTEIN - DIPSTICK NEGATIVE (NEG-TRACE); URINE SPECIFIC GRAVITY <=1.005
[2021-12-20 19:47] LABS: URINE NITRITE - DIPSTICK NEGATIVE (Negative)
--- NOTE | 2021-12-20 20:00 | NUR ---
Reassessment of patient completed. No distress noted.
--- NOTE | 2021-12-20 21:48 | NUR ---
Reassessment of patient completed. No distress noted.
[2021-12-20 22:10] VITALS: BP 120/58
--- NOTE | 2021-12-20 22:10 | NUR ---
PT RECEIVED FROM ED TO ROOM 270. ARRIVES VIA STRETCHER ACCOMPANIED BY ABHI TOMLINSON. PT AMBULATORY TO BED. GAIT UNSTEADY. PT DENIES PAIN AT THIS TIME. ORIENTED TO UNIT, ROOM, CALL CALDERON, LIGHTS, TV. ICE WATER PROVIDED. CALL CALDERON WITHIN REACH. AGREES TO CALL PRN.
--- NOTE | 2021-12-20 22:30 | NUR ---
PHYSICAL ASSESMENT COMPLETE. PT CURRENTLY COMPLAINING OF NECK PAIN AND DISCOMFORT. SCHEDULED MEDICATIONS AND PRN MEDICATION ADMINISTERED, SEE E-MAR. PT DENIES ANY NEEDS AT THIS TIME. PLAN OF CARE REVIEWED, PT DENIES QUESTIONS, VERBALIZES UNDERSTANDING. ITEMS WITHIN REACH, BED LOCKED IN LOW POSITION W/ BEDRAILS UP X2. CALL CALDERON WITHIN REACH, AGREES TO CALL PRN.
--- NOTE | 2021-12-21 00:21 | NUR ---
PT LAYING IN BED WITH EYES CLOSED, APPEARS TO BE SLEEPING, APPEARS COMFORTABLE AND IN NO DISTRESS. RESPIRATIONS REGULAR AND UNLABORED. ITEMS REMAIN WITHIN REACH, CALL CALDERON REMAINS WITHIN REACH. BED REMAINS LOCKED AND IN LOW POSITION WITH BEDRAILS UP X2. WILL CONTINUE TO MONITOR.
[2021-12-21 04:00] VITALS: BP 119/60
--- NOTE | 2021-12-21 04:05 | NUR ---
PT RESTING IN BED, NO SIGNS OF DISTRESS NOTED, RESP EVEN AND UNLABORED. PT VOICES NO NEEDS OR COMPLAINTS AT THIS TIME. CALL LIGHT IN REACH, CONTINUE TO MONITOR.
[2021-12-21 06:36] LABS: MEAN CELL VOLUME 84.4 fL CALC (80.0-100.0); MEAN CORPUSCULAR HGB 25.7 pG CALC (26.0-32.0); MEAN CORPUSCULAR HGB CONC 30.4 g/dL CAL (32.0-36.0); RED BLOOD COUNT 4.56 mill/uL (4.20-5.60); RED CELL DISTRI WIDTH 15.5 % (11.5-15.5)
[2021-12-21 06:40] LABS: ANION GAP 13 (6-22 (CALC)); BUN 23 mg/dL (8-23); BUN/CREATININE RATIO 32 (12-20 (CALC)); CARBON DIOXIDE 32 mmol/l (22-30); CHLORIDE 97 mmol/l (95-108); CREATININE 0.7 mg/dL (0.5-1.0); GFR > 60 ML/MIN (>=60 (CALC)); GFR FOR AFR.AMER. > 60 ML/MIN (>=60 (CALC)); SODIUM 137 mmol/l (137-146)
[2021-12-21 06:53] LABS: HEMATOCRIT 38.5 % (37.0-47.0); HEMOGLOBIN 11.7 g/dl (12.0-16.0)
[2021-12-21] MEDS ORDERED: CYMBALTA30 MG PO (07:26)
[2021-12-21 08:00] VITALS: BP 133/54
[2021-12-21 10:42] VITALS: BP 116/53
--- NOTE | 2021-12-21 13:23 | NUR ---
PATIENT ALERT AND ORIENTED X3. GOOD RESPIRATORY PATTERN AT THIS TIME. PATIENT REFER PAIN. MEDICATIONS DONE. COME AND EXPLAIN TO THE PATIEN EVERYTHING ABOUT POSSIBLE SURGERY THE NEXT SATURDAY.
[2021-12-21 14:41] VITALS: BP 129/60
[2021-12-21 16:10] VITALS: BP 129/60
[2021-12-21 19:03] VITALS: BP 149/62
--- NOTE | 2021-12-21 20:00 | NUR ---
PATIENT RESTING IN BED AT THIS TIME WITH EYES CLOSED-RESPONDS QUICKLY WHEN SPOKEN TO. ALERT AND ORIENTEDX3. TELE MONITOR IN PLACE WITH LAST READING A-. IVF NS PATENT AND INFUSING VIA RAC SITE AT 100CC/HR. SITE REMAINS HEALTHY WITH GOOD BLOOD RETURN. GLUCOSE MONITOR WAS 131 TONIGHT WITH NO COVERAGE REQUIRED. TAKING PO FLUIDS AND TOLERATING WELL AT THIS TIME. SAFETY PRECAUTIONS REINFORCED. CALL LIGHT IN REACH. WILL CONT TO MONITOR.
--- NOTE | 2021-12-21 22:43 | NUR ---
PATIENT RESTING IN BED-C/O SEVERE PAIN TO RIGHT FOOT AND NECK-10/10 ON PAIN SCALE. MEDICATED WITH MORPHINE 1MG IVP ORDERED FOR PAIN. SAFETY PRECAUTIONS REINFORCED. CALL LIGHT IN REACH. WILL CONT TO MONITOR,
[2021-12-22] VITALS: BP 107/55
--- NOTE | 2021-12-22 | NUR ---
PATIENT RESTING INBED WITH EYES CLOSED.RESPS ARE EVEN AND UNLABORED. TELE MONITOR IN PLACE. IVF PATENT AND INFUSING VIA RAC SITE AT 100CC/HR. ZOSYN HUNG ORDERED. CALL LIGHT IN REACH. WILL CONT TO MONITOR.
--- NOTE | 2021-12-22 01:52 | NUR ---
PATIENT RESTING IN BED AT THIS TIME WITH EYES CLOSED. RESPS ARE EVEN AND UNLABORED, IVF PATENT AND INFUSING VIA RAc site at 100cc/hr. site remains healthy. TELE MONITOR IN PLACE. CALL LIGHT IN REACH. WILL CONT TO MONITOR.
[2021-12-22 04:00] VITALS: BP 118/53
[2021-12-22 05:31] LABS: HEMATOCRIT 38.3 % (37.0-47.0); HEMOGLOBIN 11.4 g/dl (12.0-16.0); MEAN CELL VOLUME 87.8 fL CALC (80.0-100.0); MEAN CORPUSCULAR HGB 26.1 pG CALC (26.0-32.0); MEAN CORPUSCULAR HGB CONC 29.8 g/dL CAL (32.0-36.0); RED BLOOD COUNT 4.36 mill/uL (4.20-5.60); RED CELL DISTRI WIDTH 15.5 % (11.5-15.5)
[2021-12-22 05:50] LABS: ANION GAP 11 (6-22 (CALC)); BUN 12 mg/dL (8-23); BUN/CREATININE RATIO 25 (12-20 (CALC)); CHLORIDE 103 mmol/l (95-108); CREATININE 0.5 mg/dL (0.5-1.0); GFR > 60 ML/MIN (>=60 (CALC)); GFR FOR AFR.AMER. > 60 ML/MIN (>=60 (CALC)); MAGNESIUM 1.8 mg/dL (1.6-2.3); POTASSIUM 3.9 mmol/l (3.5-5.1); SODIUM 134 mmol/l (137-146)
[2021-12-22 05:54] LABS: CARBON DIOXIDE 24 mmol/l (22-30)
--- NOTE | 2021-12-22 06:16 | NUR ---
PATIENT RESTING IN BED WITH EYES CLOSED. RESPS EVEN AND UNLABORED. TELE MONITOR IN PLACE-LAST READING WAS A-FIB 76. IVF NS PATENT AND INFUSING VIA RAC AT 100CC/HR. SITE IS HEALTHY AT THIS TIME. CALL LIGHT IN REACH. WILL CONT TO MONITOR.
[2021-12-22 08:00] VITALS: BP 136/60
--- NOTE | 2021-12-22 09:08 | NUR ---
REPORT RECEIVE FROM PB TOMLINSON.
[2021-12-22 13:38] VITALS: BP 97/46
[2021-12-22 15:54] VITALS: BP 138/49
[2021-12-22 20:00] VITALS: BP 119/46
--- NOTE | 2021-12-22 20:07 | NUR ---
PATIENT SITTING UP IN BED-AWAKE ALERT AND ORIENTEDX3. C/O RIGHT FOOT AND NECK PAIN 6/10 ON PAIN SCALE. MEDICATED WITH MORPHINE 1MG IVP VIA RAC SITE. IVF NS PATENT AND INFUSING AT 100CC/HR. SITE IS HEALTHY WITH GOOD BLOOD RETURN. LUNGS ARE CLEAR. ABD SOFT WITH ACTIVE BS. PATIENT STATES THAT SHE DID HAVE BM TODAY. HS MEDS GIVEN ORDERED. GLUCOSE MONITOR WAS 136-NO COVERAGE NEEDED. HS SNACK PROVIDED. SAFETY PRECAUTIONS REINFORCED. CALL LIGHT IN REACH.WILL CONT TO MONITOR.
--- NOTE | 2021-12-22 23:43 | NUR ---
PATIENT RESTING IN BED WITH EYES CLOSED. RESPS ARE EVEN AND UNLABORED. ZOSYN HUNG ORDERED. TELE MONITOR IN PLACE. CALL LIGHT IN REACH. WILL CONT TO MONITOR.
[2021-12-23 00:34] VITALS: BP 117/65
--- NOTE | 2021-12-23 03:40 | NUR ---
PATIENT RESTING IN BED AT THIS TIME WITH EYES CLOSED. RESPS ARE EVEN AND UNLABORED AT THIS TIME. IVF PATENT AND INFUSING VIA RAC SITE AT 100CC/HR. TELE MONITOR IN PLACE. CALL LIGHT IN REACH. WILL CONT TO MONITOR.
[2021-12-23 04:00] VITALS: BP 131/73
[2021-12-23 05:49] LABS: HEMATOCRIT 34.4 % (37.0-47.0); HEMOGLOBIN 10.3 g/dl (12.0-16.0); IMMATURE GRANULOCYTES 0.2 % (0.0-5.0); MEAN CELL VOLUME 85.4 fL CALC (80.0-100.0); MEAN CORPUSCULAR HGB 25.6 pG CALC (26.0-32.0); MEAN CORPUSCULAR HGB CONC 29.9 g/dL CAL (32.0-36.0); NEUT# 3.32 thou/uL (2.00-7.15); RED BLOOD COUNT 4.03 mill/uL (4.20-5.60)
[2021-12-23 06:07] LABS: ALKALINE PHOSPHATASE 104 u/l (38-126); BILIRUBIN, TOTAL 0.7 mg/dL (0.0-1.4); BUN 6 mg/dL (8-23); BUN/CREATININE RATIO 16 (12-20 (CALC)); CARBON DIOXIDE 23 mmol/l (22-30); CHLORIDE 105 mmol/l (95-108); CREATININE 0.4 mg/dL (0.5-1.0); GFR > 60 ML/MIN (>=60 (CALC)); GFR FOR AFR.AMER. > 60 ML/MIN (>=60 (CALC)); SGOT/AST 18 u/l (9-36); SODIUM 136 mmol/l (137-146)
[2021-12-23 06:28] LABS: ALBUMIN 2.7 g/dL (3.2-5.0); ANION GAP 11 (6-22 (CALC)); POTASSIUM 3.1 mmol/l (3.5-5.1); TOTAL PROTEIN 5.6 g/dL (6.3-8.2)
--- NOTE | 2021-12-23 08:00 | NUR ---
PATIENT DENIES RIGHT FOOT PAIN. ASSISTED TO BATHROOM FOR AM CARE TOLERATED WELL. BREAKFAST TOLERATED WELL . TRANSFERRED TO RECLINER CHAIR FOR COMFORT. TANK TRUCK OPERATOR REPORTS AFIB WITH CONTROLED VENTRICULAR RATE 62 BPM.
[2021-12-23 11:05] VITALS: BP 136/56
--- NOTE | 2021-12-23 12:00 | NUR ---
dENIES PAIN OR DISCOMFORT. LUNCH TOLERATED WELL ACCUCHECK 144 MG/DL DENIES NAUSEA OR ABD PAIN DISCOMFORT.
[2021-12-23 15:25] VITALS: BP 149/52
--- NOTE | 2021-12-23 19:00 | NUR ---
REPORT RECEIVED FROM DAYSHIFT NURSE VIA SBAR FORMAT. PATIENT IS RESTING IN BED, ALERT AND ORIENTED X4, NO PAIN OR NEEDS REPORTED, CALL CALDERON AT REACH, SAFETY MEASURES REINFORCED.
[2021-12-23 19:35] VITALS: BP 109/47
--- NOTE | 2021-12-23 22:24 | NUR ---
C/O PAIN TO NECK AND BLE, MEDICATED WITH MORPHINE IV PER EMAR, NO S/S OF DISTRESS NOTED RESP ARE EVEN AND UNLABORED, WILL FOLLOW UP WITH REASSESSMENT, PATIENT IS AWAKE, WATCHING TV. ENCOURAGED TO CALL IF NEEDED, CALL CALDERON AT REACH.
[2021-12-23 23:39] VITALS: BP 132/62
--- NOTE | 2021-12-24 00:01 | NUR ---
RESTING IN BED, NO PAIN REPORTED, C/O NOT BEING ABLE TO SLEEP, PROVIDED A QUIET ENVIRONMENT. WILL FOLLOW UP CLOSELY.
[2021-12-24 04:00] VITALS: BP 150/79
--- NOTE | 2021-12-24 04:18 | NUR ---
PT IS RESTING IN BED, DOZING IN BED ON AND OFF, AROUSES TO STIMULI, CALL CALDERON AT REACH. NO NEEDS REPORTED AT THIS TIME.
[2021-12-24 04:54] LABS: HEMATOCRIT 33.5 % (37.0-47.0); HEMOGLOBIN 10.4 g/dl (12.0-16.0); MEAN CELL VOLUME 84.2 fL CALC (80.0-100.0); MEAN CORPUSCULAR HGB 26.1 pG CALC (26.0-32.0); RED BLOOD COUNT 3.98 mill/uL (4.20-5.60); RED CELL DISTRI WIDTH 14.8 % (11.5-15.5)
[2021-12-24 05:26] LABS: ANION GAP 11 (6-22 (CALC)); BUN 7 mg/dL (8-23); BUN/CREATININE RATIO 15 (12-20 (CALC)); CARBON DIOXIDE 24 mmol/l (22-30); CHLORIDE 103 mmol/l (95-108); CREATININE 0.4 mg/dL (0.5-1.0); GFR > 60 ML/MIN (>=60 (CALC)); GFR FOR AFR.AMER. > 60 ML/MIN (>=60 (CALC)); MAGNESIUM 1.4 mg/dL (1.6-2.3); SODIUM 136 mmol/l (137-146)
--- NOTE | 2021-12-24 05:54 | NUR ---
Patient is resting in bed quietly, no pain or needs reported, zosyn infusing per MD orders to patent iv site, resp are even and unlabored, call martin at reach.
--- NOTE | 2021-12-24 06:28 | NUR ---
Resing in bed, no complaints voiced, call martin at reach. Resp are even and unlabored.
--- NOTE | 2021-12-24 08:00 | NUR ---
SHIFT CHANGE REPORT, PT AWAKE ALERT AND ORIENTED SITTING UP IN BED, NO C/I DISCOMFORT, TELE MONITOR IN PLACE, CALL CALDERON IN REACH AND BED LOCKED IN LOWEST POSITION.
[2021-12-24 08:07] VITALS: BP 146/62
--- NOTE | 2021-12-24 12:00 | NUR ---
ATE MEAL, RELAXING IN BED, ALL NEEDS ADDRESSED, CALL CALDERON IN REACH.
[2021-12-24 12:07] VITALS: BP 136/60
[2021-12-24 16:05] VITALS: BP 152/64
[2021-12-24 19:30] VITALS: BP 136/55
--- NOTE | 2021-12-24 20:00 | NUR ---
RECEIVED REPORT FROM NURSE CRUZ PATIENT RESTING IN BED WATCHING TV, PATIENT HOOKED ON TELEMETRY AFIB 68, DENIES PAIN AT THIS TIME, LUNG SOUNDS CLEAR, DENIES COUGH, PATIENT REINFORCED ON NPO SATUS POST MIDNIGHT, CONSENT FOR OR SECURED, CALL LIGHT AT REACH.
[2021-12-25] VITALS (10 sets, daily range): BP systolic 140–165; BP diastolic 57–94
--- NOTE | 2021-12-25 00:27 | NUR ---
NPO at this time.
--- NOTE | 2021-12-25 02:24 | NUR ---
INSERTED NEW IV AT THIS TIME, GAUGE 20 ON LAC PATENT FLSUHES WELL.
--- NOTE | 2021-12-25 04:48 | NUR ---
PATIENT RESTING EYES CLOSED, CALL LIGHT AT REACH.
[2021-12-25 05:46] LABS: HEMATOCRIT 34.3 % (37.0-47.0); HEMOGLOBIN 10.8 g/dl (12.0-16.0); MEAN CELL VOLUME 83.1 fL CALC (80.0-100.0); MEAN CORPUSCULAR HGB 26.2 pG CALC (26.0-32.0); MEAN CORPUSCULAR HGB CONC 31.5 g/dL CAL (32.0-36.0); RED BLOOD COUNT 4.13 mill/uL (4.20-5.60); RED CELL DISTRI WIDTH 15.1 % (11.5-15.5)
[2021-12-25 06:05] LABS: ANION GAP 14 (6-22 (CALC)); BUN 5 mg/dL (8-23); BUN/CREATININE RATIO 14 (12-20 (CALC)); CARBON DIOXIDE 21 mmol/l (22-30); CHLORIDE 105 mmol/l (95-108); CREATININE 0.4 mg/dL (0.5-1.0); GFR > 60 ML/MIN (>=60 (CALC)); GFR FOR AFR.AMER. > 60 ML/MIN (>=60 (CALC)); POTASSIUM 3.5 mmol/l (3.5-5.1); SODIUM 136 mmol/l (137-146)
[2021-12-25 06:07] LABS: MAGNESIUM 1.9 mg/dL (1.6-2.3)
--- NOTE | 2021-12-25 07:30 | NUR ---
REPORT RECEIVED FROM DAVI PETERS. PT ALERT AND ORIENTATED. DENIES PAIN, SOB OR DISCOMFORT. OR STAFF ON ON UNIT FOR PT. PT AMBULATORY FROM THE BED TO THE STRETCHER. STABLE AT TIME OF DEPARTURE.
--- NOTE | 2021-12-25 11:00 | NUR ---
PT ARRIVED FROM THE OR AT THIS TIME IN STABLE CONDITION. PT IS AROUSABLE BUT DROWSY, VSS. C/O OF ABDOMINAL PAIN. WILL REVIEW EMAR AND MEDICATE APPROPRIATE. BED ALARM APPLIED. CALL LIGHT WITHIN REACH. WILL CONTINUE TO MONITOR.
--- NOTE | 2021-12-25 16:00 | NUR ---
PT REMAINS DROWSY, BUT AROUSABLE. TORADOL EFFECTIVE FOR PAIN CONTROL. VOICES NO OTHER COMPLAINTS AT THIS TIME. CALL LIGHT WITHIN REACH. INSTRUCTED PT TO CALL FOR ASSISTANCE, STATES UNDERSTANDING.
--- NOTE | 2021-12-25 23:25 | NUR ---
PHYSICAL ASSESMENT COMPLETE. PT CURRENTLY COMPLAINING OF POST OP PAIN. PRN PAIN MEDICATION PROVIDED. SCHEDULED MEDICATIONS AND PRN MEDICATION ADMINISTERED, SEE E-MAR. PT DENIES ANY NEEDS AT THIS TIME. PLAN OF CARE REVIEWED, PT DENIES QUESTIONS, VERBALIZES UNDERSTANDING. ITEMS WITHIN REACH, BED LOCKED IN LOW POSITION W/ BEDRAILS UP X2. CALL CALDERON WITHIN REACH, AGREES TO CALL PRN.
[2021-12-26] VITALS (8 sets, daily range): BP systolic 97–170; BP diastolic 42–70
--- NOTE | 2021-12-26 04:00 | NUR ---
PT LAYING IN BED WITH EYES CLOSED, APPEARS TO BE SLEEPING, APPEARS COMFORTABLE AND IN NO DISTRESS. RESPIRATIONS REGULAR AND UNLABORED. ITEMS REMAIN WITHIN REACH, CALL CALDERNO REMAINS WITHIN REACH. BED REMAINS LOCKED AND IN LOW POSITION WITH BEDRAILS UP X2. WILL CONTINUE TO MONITOR.
[2021-12-26 06:16] LABS: HEMATOCRIT 34.2 % (37.0-47.0); HEMOGLOBIN 10.4 g/dl (12.0-16.0); MEAN CELL VOLUME 85.7 fL CALC (80.0-100.0); MEAN CORPUSCULAR HGB 26.1 pG CALC (26.0-32.0); MEAN CORPUSCULAR HGB CONC 30.4 g/dL CAL (32.0-36.0); RED BLOOD COUNT 3.99 mill/uL (4.20-5.60); RED CELL DISTRI WIDTH 15.4 % (11.5-15.5)
[2021-12-26 06:32] LABS: ANION GAP 11 (6-22 (CALC)); BUN 6 mg/dL (8-23); BUN/CREATININE RATIO 12 (12-20 (CALC)); CARBON DIOXIDE 22 mmol/l (22-30); CHLORIDE 108 mmol/l (95-108); CREATININE 0.5 mg/dL (0.5-1.0); GFR > 60 ML/MIN (>=60 (CALC)); GFR FOR AFR.AMER. > 60 ML/MIN (>=60 (CALC)); MAGNESIUM 1.8 mg/dL (1.6-2.3); SODIUM 136 mmol/l (137-146)
[2021-12-26 06:35] LABS: POTASSIUM 4.6 mmol/l (3.5-5.1)
--- NOTE | 2021-12-26 06:45 | NUR ---
REPORT RECEIVED FROM BRANDON TOMLINSON. CARE ASSUMED.
--- NOTE | 2021-12-26 07:30 | NUR ---
PATIENT RESTING IN BED WITH EYES CLOSED. AROUSES TO VERBAL STIMULI. PATIENT ALERT AND ORIENTED X3. SHIFT ASSESSMENT COMPLETED AT THIS TIME. IV PATENT X1. CALL LIGHT IN REACH. BED ALARM IN PLACE FOR PATIENT SAFETY WILL CONTINUE TO MONTIOR.
--- NOTE | 2021-12-26 07:41 | NUR ---
Patient is screened for PT intervention and would benefit from consult if medical agrees
--- NOTE | 2021-12-26 08:45 | NUR ---
PATIENT ASSISTED UP TO RECLINER AT BEDSIDE.
--- NOTE | 2021-12-26 11:29 | NUR ---
PATIENT ASSISTED BACK TO BED. PATIENT MEDICATED FOR PAIN. JOSE REPORTS USING INCENTIVE SPRIOMETER. CALL LIGHT IN REACH. WILL CONTINUE TO MONITOR.
--- NOTE | 2021-12-26 19:46 | NUR ---
PROVIDER NOTIFIED OF PATIENTS LOW BP. MARINE VALLES.
--- NOTE | 2021-12-26 19:50 | NUR ---
PATIENT ALERT AND ORIENTED. ABLE TO MAKE NEEDS KNOWN. ASSESSMENT COMPLETE. PATIENT COMPLAINED OF PAIN TO ABDOMEN. WILL MEDICATE PER PRN ORDERS. LAP SITES X4 CDI WITH DERMABOND. CALL LIGHT AND BELONGINGS REMAIN IN REACH.
--- NOTE | 2021-12-26 22:42 | NUR ---
NOTIFIED PROVIDER OF PATIENT COMPLAINING OF CHEST DISCOMFORT, LEFT ARM DISCOMFORT, AND JAW. STAT EKG DONE WELL STAT TROPONIN. NO NEW ORDERS AT THIS TIME. VS DONE AND PROVIDER AWARE OF THEM.
--- NOTE | 2021-12-26 23:20 | NUR ---
PATIENT RESTING IN BED. PAIN TO LEFT EXTREM, CHEST AND JAW HAS DECREASED, NO SIGNS OF DISTRESS NOTED. VS REMAIN STABLE. TROPONIN NEGATIVE. CALL LIGHT AND BELONGINGS REMAIN IN REACH.
[2021-12-27] VITALS: BP 126/63
[2021-12-27 04:00] VITALS: BP 139/63
--- NOTE | 2021-12-27 04:30 | NUR ---
RESTING IN BED QUIETLY. NO COMPLAINTS VOICED. NO DISTRESS OBSERVED. CALL LIGHT AND BELONGINGS REMAIN IN REACH.
[2021-12-27 05:23] LABS: HEMATOCRIT 31.7 % (37.0-47.0); HEMOGLOBIN 9.5 g/dl (12.0-16.0); IMMATURE GRANULOCYTES 0.2 % (0.0-5.0); MEAN CELL VOLUME 86.1 fL CALC (80.0-100.0); MEAN CORPUSCULAR HGB 25.8 pG CALC (26.0-32.0); NEUT# 3.43 thou/uL (2.00-7.15); RED BLOOD COUNT 3.68 mill/uL (4.20-5.60); RED CELL DISTRI WIDTH 15.6 % (11.5-15.5)
[2021-12-27 05:46] LABS: ALBUMIN 2.7 g/dL (3.2-5.0); ALKALINE PHOSPHATASE 85 u/l (38-126); ANION GAP 10 (6-22 (CALC)); BUN 11 mg/dL (8-23); BUN/CREATININE RATIO 22 (12-20 (CALC)); CARBON DIOXIDE 23 mmol/l (22-30); CHLORIDE 107 mmol/l (95-108); CREATININE 0.5 mg/dL (0.5-1.0); GFR > 60 ML/MIN (>=60 (CALC)); GFR FOR AFR.AMER. > 60 ML/MIN (>=60 (CALC)); POTASSIUM 4.5 mmol/l (3.5-5.1); SGOT/AST 16 u/l (9-36); SODIUM 136 mmol/l (137-146); TOTAL PROTEIN 5.6 g/dL (6.3-8.2)
[2021-12-27 05:52] LABS: BILIRUBIN, TOTAL 0.4 mg/dL (0.0-1.4)
--- NOTE | 2021-12-27 07:37 | NUR ---
RECEIVE REPORT FROM EZRA TOMLINSON. PATIENT STABLE NO REPORT PAIN AT THIS TIME. ALERT AND ORIENTED TIMES III. EDUCATED ABOUT MEDICATIONS, NURSING AND CLINICAL PLAN FOR TODAY. PATIENT REFER UNDERSTAND.
[2021-12-27] MEDS ORDERED: COLCHICINE0.6 M2 PO (08:39)
[2021-12-27 08:40] VITALS: BP 164/75
[2021-12-27] MEDS ORDERED: LORTAB 7.57.5 MG PO (08:40)
[2021-12-27 10:33] VITALS: BP 133/56
--- NOTE | 2021-12-27 12:51 | NUR ---
Patient discharged stable no pain, no distress. Patient is educated about medications at home and follow up. Patient and family refer understand
--- NOTE | 2021-12-27 20:07 | NUR ---
Subjective: Patient states that she feels a little better today compared to yesterday's PT visit. Objective: Patient did the following: Patient did seated B LE AROM exercise protocol: hip flexion hip adduction and abduction, knee extension, hamstring curls, and ankle pumps for 2 x 10 reps with 1 rest period. Patient also did bed mobility, transfes, and gait ADLs for short distances with SBA x 1. Assessment: Patient ADL participation has improved due to improving muscle strength, knowledge of practicing proper body mechanics, and improving endurance. Plan: Patient will be discharged today. Am Pac score presently at 14 points, discharge recommendation will be home health intervention to help patient get back to near PLOF.
== END 2021-12-27 12:41 | disposition home health service (06) ==
LOC: ED 16:21 → ED-I 21:30 → ED 21:42 → MS2 21:43
PROVIDERS: Family Medicine; Nurse Practitioner; ADMIT Hospitalist; ATTEND Hospitalist
PROC: 0FT44ZZ Resection of Gallbladder, Percutaneous Endoscopic Approach (ICD-10-PCS; principal; 2021-12-25)
DX: K80.12 Calculus of gallbladder with acute and chronic cholecystitis without obstruction (principal); I11.0 Hypertensive heart disease with heart failure; I50.9 Heart failure, unspecified; E11.9 Type 2 diabetes mellitus without complications; I48.20 Chronic atrial fibrillation, unspecified; E87.2 Acidosis; M10.071 Idiopathic gout, right ankle and foot; I25.10 Atherosclerotic heart disease of native coronary artery without angina pectoris; E87.6 Hypokalemia; E78.5 Hyperlipidemia, unspecified; Z95.1 Presence of aortocoronary bypass graft; Z79.01 Long term (current) use of anticoagulants; Z20.822 Contact with and (suspected) exposure to COVID-19
CPT/HCPCS: J0131; J1610; J1650; J3475; Q9967

== ENCOUNTER 2022-09-17 12:26 | Observation (INO) | payer MEDICARE ==
[~2022-09-17] VITALS: Ht 165.1 cm; Wt 65.4 kg
[~2022-09-17 12:26] MED LIST changes: +COLCHICINE0.6 M2 PO; +CYMBALTA30 MG PO; +LORTAB 7.57.5 MG PO
[2022-09-17 13:34] LABS: HEMATOCRIT 48.6 % (37.0-47.0); HEMOGLOBIN 16.1 g/dl (12.0-16.0); IMMATURE GRANULOCYTES 0.2 % (0.0-5.0); MEAN CELL VOLUME 76.8 fL CALC (80.0-100.0); MEAN CORPUSCULAR HGB 25.4 pG CALC (26.0-32.0); MEAN CORPUSCULAR HGB CONC 33.1 g/dL CAL (32.0-36.0); NEUT# 7.13 thou/uL (2.00-7.15); RED BLOOD COUNT 6.33 mill/uL (4.20-5.60); RED CELL DISTRI WIDTH 20.1 % (11.5-15.5)
[2022-09-17 13:50] LABS: CREATININE 1.1 mg/dL (0.5-1.0)
[2022-09-17 13:51] LABS: POTASSIUM 4.8 mmol/l (3.5-5.1)
[2022-09-17 14:17] VITALS: BP 173/68
[2022-09-17 15:38] VITALS: BP 116/56
[2022-09-17 18:43] VITALS: BP 94/43
[2022-09-18] VITALS (10 sets, daily range): BP systolic 106–155; BP diastolic 36–73
[2022-09-19] VITALS (7 sets, daily range): BP systolic 98–126; BP diastolic 39–64
[2022-09-20] VITALS (8 sets, daily range): BP systolic 100–141; BP diastolic 39–88
[2022-09-20 12:04] LABS: MEAN CELL VOLUME 78.3 fL CALC (80.0-100.0); MEAN CORPUSCULAR HGB 25.8 pG CALC (26.0-32.0); RED BLOOD COUNT 4.65 mill/uL (4.20-5.60); RED CELL DISTRI WIDTH 19.1 % (11.5-15.5)
[2022-09-20 12:14] LABS: HEMATOCRIT 36.4 % (37.0-47.0)
[2022-09-20 12:44] LABS: ANION GAP 11 (6-22 (CALC)); BUN 8 mg/dL (8-23); BUN/CREATININE RATIO 13 (12-20 (CALC)); CARBON DIOXIDE 26 mmol/l (22-30); CHLORIDE 103 mmol/l (95-108); CREATININE 0.6 mg/dL (0.5-1.0); GFR FOR AFR.AMER. > 60 ML/MIN (>=60 (CALC)); GFR OTHER RACES > 60 ML/MIN (>=60 (CALC)); POTASSIUM 4.5 mmol/l (3.5-5.1); SODIUM 135 mmol/l (137-146)
[2022-09-21 03:45] VITALS: BP 144/42
[2022-09-21 06:17] VITALS: BP 154/48
[2022-09-21] MEDS ORDERED: AMOXICILLIN500 M2 PO (06:34)
[2022-09-21] MEDS ORDERED: CLARITHROMYCIN500 MG PO (06:34)
[2022-09-21] MEDS ORDERED: PANTOPRAZOLE SO40 M1 PO (06:35)
[2022-09-21 07:16] VITALS: BP 154/48
[2022-09-21 09:41] VITALS: BP 132/52
[2022-09-21 10:40] VITALS: BP 132/52
[2022-09-28] MEDS ORDERED: TRAMADOL HYDROC50 M1 PO (13:38)
== END 2022-09-21 13:46 | disposition home or self-care (01) ==
LOC: MS2 12:26
PROVIDERS: ADMIT Surgery; ATTEND Surgery
PROC: 0DB98ZX Excision of Duodenum, Via Natural or Artificial Opening Endoscopic, Diagnostic (ICD-10-PCS; principal; 2022-09-18)
PROC: 0DB78ZX Excision of Stomach, Pylorus, Via Natural or Artificial Opening Endoscopic, Diagnostic (ICD-10-PCS; 2022-09-18)
DX: K25.9 Gastric ulcer, unspecified as acute or chronic, without hemorrhage or perforation (principal); K29.70 Gastritis, unspecified, without bleeding; K44.9 Diaphragmatic hernia without obstruction or gangrene; K29.80 Duodenitis without bleeding; I47.1 Supraventricular tachycardia; I10 Essential (primary) hypertension; E11.9 Type 2 diabetes mellitus without complications; Z20.822 Contact with and (suspected) exposure to COVID-19; Z90.49 Acquired absence of other specified parts of digestive tract
CPT/HCPCS: Q9967; S0164

== ENCOUNTER 2022-10-28 15:16 | Observation (INO) | payer MEDICARE ==
[~2022-10-28] VITALS: Ht 165.1 cm; Wt 63.6 kg
[2022-10-28] VITALS (16 sets, daily range): BP systolic 94–121; BP diastolic 43–55
[~2022-10-28 15:16] MED LIST changes: +AMOXICILLIN500 M2 PO; +CLARITHROMYCIN500 MG PO; +PANTOPRAZOLE SO40 M1 PO; +TRAMADOL HYDROC50 M1 PO
[2022-10-28 16:10] LABS: HEMATOCRIT 31.6 % (37.0-47.0); HEMOGLOBIN 11.2 g/dl (12.0-16.0); IMMATURE GRANULOCYTES 0.7 % (0.0-5.0); MEAN CELL VOLUME 81.7 fL CALC (80.0-100.0); MEAN CORPUSCULAR HGB 28.9 pG CALC (26.0-32.0); MEAN CORPUSCULAR HGB CONC 35.4 g/dL CAL (32.0-36.0); NEUT# 11.57 thou/uL (2.00-7.15); RED BLOOD COUNT 3.87 mill/uL (4.20-5.60); RED CELL DISTRI WIDTH 16.3 % (11.5-15.5)
[2022-10-28 16:26] LABS: ALBUMIN 3.8 g/dL (3.2-5.0); ALKALINE PHOSPHATASE 128 u/l (38-126); ANION GAP 14 (6-22 (CALC)); BILIRUBIN, TOTAL 1.2 mg/dL (0.0-1.4); BUN 13 mg/dL (8-23); BUN/CREATININE RATIO 22 (12-20 (CALC)); CARBON DIOXIDE 25 mmol/l (22-30); CHLORIDE 93 mmol/l (95-108); CREATININE 0.6 mg/dL (0.5-1.0); GFR FOR AFR.AMER. > 60 ML/MIN (>=60 (CALC)); GFR OTHER RACES > 60 ML/MIN (>=60 (CALC)); LIPASE 10 u/l (23-300); POTASSIUM 3.3 mmol/l (3.5-5.1); SGOT/AST 21 u/l (9-36); SODIUM 129 mmol/l (137-146); TOTAL PROTEIN 7.4 g/dL (6.3-8.2)
[2022-10-28] MEDS ORDERED: FOLIC ACID1 MG PO (16:27)
[2022-10-28] MEDS ORDERED: OMEPRAZOLE DR40 MG PO (16:30)
[2022-10-28] MEDS ORDERED: KLOR-CON M2020 MEQ PO (16:32)
[2022-10-28] MEDS ORDERED: SUCRALFATE1 GM PO (16:33)
[2022-10-28] MEDS ORDERED: LANTUS SOL100 UNIT/M (16:34)
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
--- NOTE | 2022-10-28 17:34 | NUR ---
PATIENT RESTING ON STRETCHER IN ROOM. REDUCTION OF PAIN REPORTED FOLLOWING IV MORPHINE. PATIENT REMAINS AAO. O2 APPLIED @ 2LPM. IVF BOLUS IN PROGRESS. HOME MEDS AND PERSONAL CLOTHING PLACED IN BELONGINGS BAG AT BEDSIDE. DAUGHTER NO LONGER IN ROOM TO ADVISE OF UPDATED POC.
--- NOTE | 2022-10-28 20:36 | NUR ---
PATIENT ALERT AND ORIENTED X 3. NO S/S OF RESPIRATORY DISRTRESS. DENIES ANY C/O PAIN. PATIENT TAKEN TO ROOM 260 AND REPORT GIVEN TO THE NURSE MORGAN. DAUGHTER TOOK ALL PATIENT BELONGINGS HIME WITH HER,
--- NOTE | 2022-10-28 20:40 | NUR ---
PT ARRIVED TO MS2 VIA STRETCHER ACCOMPANIED BY ER NURSE, PT ALERT AND ORIENTED X4, NO SIGNS OF DISTRESS NOTED, RESP EVEN AND UNLABORED. PT ORIENTED TO ROOM AND CALL LIGHT, DISCUSSED POC. PT PLACED ON CONTACT PRECAUTIONS, DISCUSSED WITH PT, VERBALIZED UNDERSTANDING. PURE WICK PLACED DUE TO PT HAVING A R HEEL FRACTURE, ORTHOGLASS TEMPORARY CAST IN PLACE. ELEVATED ON PILLOW. ADMISSION ASSESSMENT COMPLETED, BED ALARM FOR SAFETY, CALL LIGHT IN REACH,CONTINUE TO MONITOR.
--- NOTE | 2022-10-29 | NUR ---
PT RESTING IN BED WITH EYES CLOSED, RESP EVEN AND UNLABORED. BED ALARM FOR SAFETY, CALL LIGHT IN REACH,CONTINUE TO MONITOR.
[2022-10-29 00:12] VITALS: BP 103/42
[2022-10-29 03:54] VITALS: BP 117/46
--- NOTE | 2022-10-29 05:04 | NUR ---
nusrat lift sling dirty. pt was weighed by bed weight. nurse maribeth notified @0500.
[2022-10-29 05:33] LABS: HEMATOCRIT 27.8 % (37.0-47.0); HEMOGLOBIN 9.6 g/dl (12.0-16.0); IMMATURE GRANULOCYTES 0.6 % (0.0-5.0); MEAN CORPUSCULAR HGB CONC 34.5 g/dL CAL (32.0-36.0); NEUT# 11.1 thou/uL (2.00-7.15); RED BLOOD COUNT 3.31 mill/uL (4.20-5.60); RED CELL DISTRI WIDTH 16.6 % (11.5-15.5)
[2022-10-29 05:36] LABS: ALKALINE PHOSPHATASE 113 u/l (38-126); ANION GAP 9 (6-22 (CALC)); BILIRUBIN, TOTAL 1.2 mg/dL (0.0-1.4); BUN 12 mg/dL (8-23); BUN/CREATININE RATIO 24 (12-20 (CALC)); CARBON DIOXIDE 30 mmol/l (22-30); CHLORIDE 97 mmol/l (95-108); CREATININE 0.5 mg/dL (0.5-1.0); GFR FOR AFR.AMER. > 60 ML/MIN (>=60 (CALC)); GFR OTHER RACES > 60 ML/MIN (>=60 (CALC)); POTASSIUM 3.3 mmol/l (3.5-5.1); SGOT/AST 17 u/l (9-36); SODIUM 133 mmol/l (137-146)
[2022-10-29 05:37] LABS: ALBUMIN 2.9 g/dL (3.2-5.0); TOTAL PROTEIN 5.7 g/dL (6.3-8.2)
[2022-10-29 06:12] VITALS: BP 110/38
--- NOTE | 2022-10-29 07:00 | NUR ---
RECEIVE REPORT FROM MORGAN TOMLINSON.
--- NOTE | 2022-10-29 08:00 | NUR ---
PATIENT ALERT AND ORIENTED X3. RESTING STABLE IN BED AT THIS TIME. ASSESSMENTE HEAD-TO TOE COMPLETE. PATIENT IS EDUCATED ABOUD MEDICATIONS, PAIN MANAGEMENT AND NURSING PLAN FOR TODAY. PATIENT REFER UNSERSTAND. SAFETY AND FALL PRECAUTIONS IN PLACE. CALL LIGHT WITHIN IN REACH. BEFORE HE LEFT OR THE
[2022-10-29 10:22] VITALS: BP 108/38
--- NOTE | 2022-10-29 12:17 | NUR ---
PT RESTING IN BED. STATES NO PAIN. TELE MONITOR IN PLACE. CONTINOUS MONITORING FALL/SAFTEY PRECAUTION IN PLACE, CALL LIGHT WITHIN REACH.
[2022-10-29 15:46] VITALS: BP 109/44
--- NOTE | 2022-10-29 16:23 | NUR ---
PATIENT RESTINGIN BED. STABLE ATTHIS TIME. SAFETY AND FALL PRECAUTIONS IN PLACE. CALL LIGHT WITHIN IN REACH.
[2022-10-29 18:57] VITALS: BP 124/47
--- NOTE | 2022-10-29 19:30 | NUR ---
PT NOTED LAYNIG IN BED FOLWERS. PT A/OX3. PT ASSESSMENT COMPLETED AND RIGHT LEG WITH SPLINT NOTED. COLOR, MOTER, AND SENSATION OF RIGHT FOOT WNL. PEGGY SITE IN RAC APPEARS HEALTHY WITH BLOOD RETURN PT DENIES ANY PAIN AT THIS TIME. PT STATED LAST BM WAS ON 10/26. PRUNE JUICE WAS ENCOURAGED FOR PT TO DRINK. DISCOMFORT WHEN PAPLPATING PT STOMACH PRESENT. RE-EDUCATED PT ON CAREPLAN. [facility]. SAFETY PRECAUTIONS IN PLACE. WILL CONTINUE TO MONITOR PT.
--- NOTE | 2022-10-29 20:00 | NUR ---
PT BARELY EATING DINNER, BLOOD SUGAR OF 94. HELD LEVEMIR PER THE EMAR FOR LOW BLOOD SURGAR.
[2022-10-30] VITALS (7 sets, daily range): BP systolic 111–137; BP diastolic 34–44
--- NOTE | 2022-10-30 | NUR ---
PT NOTED IN BED FOWLERS. RESTING WITH EYES CLOSED. NO S/S OF DISTRESS OR DISCOMFORT. SAFETY PRECAUTIONS IN PLACE AND CALL LIGHT WITHIN REACH.
[2022-10-30 06:02] LABS: URINE BLOOD DIPSTICK NEGATIVE (NEGATIVE); URINE CLARITY CLEAR; URINE COLOR YELLOW; URINE GLUCOSE - DIPSTICK 100 mg/dL (NEGATIVE); URINE KETONE NEGATIVE (NEGATIVE); URINE LEUK ESTERASE SMALL (Negative); URINE NITRITE - DIPSTICK NEGATIVE (Negative); URINE PH 5.5 (4.5-8.0); URINE PROTEIN - DIPSTICK NEGATIVE (NEG-TRACE); URINE UROBILINOGEN - DIPSTICK >=8.0 E.U./dL (0.2)
[2022-10-30 06:18] LABS: URINE BILIRUBIN - DIPSTICK SMALL (NEGATIVE)
[2022-10-30 06:19] LABS: URINE EPITHELIAL CELLS FEW EPI/hpf (0-FEW)
[2022-10-30 06:20] LABS: URINE BACTERIA MODERATE hpf
[2022-10-30 07:17] LABS: HEMOGLOBIN 9.8 g/dl (12.0-16.0); MEAN CELL VOLUME 84.3 fL CALC (80.0-100.0); MEAN CORPUSCULAR HGB 29.5 pG CALC (26.0-32.0); RED BLOOD COUNT 3.32 mill/uL (4.20-5.60); RED CELL DISTRI WIDTH 16.7 % (11.5-15.5)
[2022-10-30 07:35] LABS: ANION GAP 13 (6-22 (CALC)); BUN 9 mg/dL (8-23); BUN/CREATININE RATIO 19 (12-20 (CALC)); CARBON DIOXIDE 29 mmol/l (22-30); CHLORIDE 97 mmol/l (95-108); CREATININE 0.5 mg/dL (0.5-1.0); GFR FOR AFR.AMER. > 60 ML/MIN (>=60 (CALC)); GFR OTHER RACES > 60 ML/MIN (>=60 (CALC)); MAGNESIUM 1.6 mg/dL (1.6-2.3); POTASSIUM 3.7 mmol/l (3.5-5.1); SODIUM 136 mmol/l (137-146)
--- NOTE | 2022-10-30 08:00 | NUR ---
PT RESTING IN BED. ASSESSMENT COMPLETED. UPDATED PT CURRENT PLAN OF CARE. PT INDICATED UNDERSTANDING. TELE MONITOR IN PLACE, CONTINOUS MONITORING PER ED. TELE #1. FALL/SAFTEY PRECAUTION IN PLACE. CALL LIGHT WITHIN REACH.
--- NOTE | 2022-10-30 12:00 | NUR ---
PT EATING LUNCH. O2 IN PLACE, VIA NC @2L. NO DISTRESS NOTED. FALL/SAFTEY PERCAUTION IN PLACE, CALL LIGHT WITHIN REACH.
--- NOTE | 2022-10-30 16:00 | NUR ---
PT RESTING IN BED. STATES NO PAIN. BREATHIGN EVENA DN UNLABORED. FALL/SAFTEY PRECAUTION IN PLACE, CALL LIGHT WITHIN REACH
--- NOTE | 2022-10-30 19:30 | NUR ---
PT LAYING IN BED FOWLERS, DENIES ANY PAIN OR DISCOMFORT AT THIS TIME. PT EDUCATED ON LEVEMIR AND SIDE EFFECTS. ENCOURAGED PT TO EAT SNACK AT BEDSIDE THAT WAS PROVIDED. PT HAS NOT HAD BOWEL MOVEMENT AND STATES LAST BOWEL MOVEMENT WAS 10/26/22. PT ENCOURAGED TO DRINK PRUNE JUICE. PT HAS OXYGEN NASAL CANNULA IN PLACE ON 2L. PUREWICK IN PLACE FOR INCONTINENCE. IV SITE APPEARS HEALTHY AND NS FLUIDS RUNNING PER EMAR. SAFETY PRECAUTIONS IN PLACE AND CALL LIGHT WITHIN REACH.
--- NOTE | 2022-10-30 23:49 | NUR ---
PT NOTED IN BED RESTING WITH EYES CLOSED. NO S/S OF PAIN OR DISCOMFORT. SAFETY PRECAUTIONS IN PLACE AND CALL LIGHT WITHIN REACH.
[2022-10-31] VITALS (8 sets, daily range): BP systolic 112–151; BP diastolic 36–54
[2022-10-31 05:35] LABS: HEMATOCRIT 28.9 % (37.0-47.0); HEMOGLOBIN 10.1 g/dl (12.0-16.0); MEAN CELL VOLUME 81.6 fL CALC (80.0-100.0); MEAN CORPUSCULAR HGB 28.5 pG CALC (26.0-32.0); MEAN CORPUSCULAR HGB CONC 34.9 g/dL CAL (32.0-36.0); RED BLOOD COUNT 3.54 mill/uL (4.20-5.60); RED CELL DISTRI WIDTH 16.1 % (11.5-15.5)
[2022-10-31 06:18] LABS: BUN 5 mg/dL (8-23); BUN/CREATININE RATIO 12 (12-20 (CALC)); CARBON DIOXIDE 32 mmol/l (22-30); CHLORIDE 91 mmol/l (95-108); CREATININE 0.5 mg/dL (0.5-1.0); GFR FOR AFR.AMER. > 60 ML/MIN (>=60 (CALC)); GFR OTHER RACES > 60 ML/MIN (>=60 (CALC)); SODIUM 130 mmol/l (137-146)
[2022-10-31 06:21] LABS: ANION GAP 10 (6-22 (CALC)); POTASSIUM 2.5 mmol/l (3.5-5.1)
--- NOTE | 2022-10-31 08:00 | NUR ---
ASSESSMENT COMPLETE. O2 IN PLACE VIA 2L NC. STATES NO PAIN. TELE MONTIOR IN PLACE, COTNINOUS MONITORING PER ED. FALL/SAFTEY PRECAUTIO IN PLACE, CALL LIGHT WITHINR EACH
--- NOTE | 2022-10-31 10:30 | NUR ---
PT STATES FEELING NAUSEAS. MEDICATED SEE EMAR.
--- NOTE | 2022-10-31 12:00 | NUR ---
PT RESTING WATCHING TV. STATES NO PAIN. NO DISTRESS NOTED. STATES NAUSEA HAS SUBSIDED. FALL/SAFTEY PRECAUTION IN PLACE. CALL LIGHT WITHIN REACH.
[2022-10-31 13:15] LABS: ANION GAP 12 (6-22 (CALC)); BUN 6 mg/dL (8-23); BUN/CREATININE RATIO 14 (12-20 (CALC)); CARBON DIOXIDE 30 mmol/l (22-30); CHLORIDE 90 mmol/l (95-108); CREATININE 0.4 mg/dL (0.5-1.0); GFR FOR AFR.AMER. > 60 ML/MIN (>=60 (CALC)); GFR OTHER RACES > 60 ML/MIN (>=60 (CALC)); SODIUM 130 mmol/l (137-146)
--- NOTE | 2022-10-31 16:00 | NUR ---
PT RESTING IN BED WATCHING TV. BREATHIGN EVEN AND UNLABORED. STATES NO NEEDS AT THIS TIME. FALL/SAFTEY PRECAUTION IN PLACE. CALL LIGHT WITHIN REACH
--- NOTE | 2022-10-31 19:30 | NUR ---
PT NOTED IN BED FOWLERS. PT IS A/OX3. PT DENIES ANY PAIN OR DISCOMFORT AT THIS TIME. PT REQUESTED TO USE BEDSIDE COMODE AND WAS A X2 ASSIST TO STAND AND PIVOT. PT UNSTEADY ON FEET. R SPLINT ON LEG NOTED AND CMS WITHIN NORMAL LIMITS. PT HAD LARGE BM RUNNY, LIGHT BROWN COLOR. PT ASSISTED BACK INTO BED. ASSESSMENT COMPLETED ON PT. IV SITE APPEARS HEALTHY. CALL LIGHT WITHIN REACH AND SAFETY PRECAUTIONS IN PLACE.
[2022-11-01] VITALS: BP 117/54
--- NOTE | 2022-11-01 | NUR ---
PT LAYING BACK IN CHAIR EATING PUDDING. CHAIR ALARM IN PLACE. PT DENIES ANY PAIN OR DISCOMFORT. SAFETY PRECAUTIONS IN PLACE AND CALL LIGHT WITHIN REACH.
[2022-11-01 04:00] VITALS: BP 145/56
[2022-11-01 04:45] VITALS: BP 145/56
--- NOTE | 2022-11-01 04:45 | NUR ---
PT SITTING UP IN CHAIR. PT A/OX2. MENTAL STATUS CHANGE SHOWING CONFUSION ON SURROUNDINGS AND PLACE. CHECKED PT BLOOD SUGAR AND WAS 201. REORIENTED PT OF PLACE AND SURROUNDINGS. NEED REINFORCMENT. PT DENIES ANY PAIN OR DISCOMFORT. NO S/S OF DISTRESS. RN NOTIFIED OF CONFUSION. CALL LIGHT WITHIN REACH AND SAFETY PRECAUTIONS IN PLACE.
--- NOTE | 2022-11-01 07:00 | NUR ---
REPORT FROM JASWINDER FERNÁNDEZ. ASSUMED PT CARE.
[2022-11-01 07:21] VITALS: BP 137/64
[2022-11-01 08:34] LABS: ANION GAP 13 (6-22 (CALC)); BUN 8 mg/dL (8-23); BUN/CREATININE RATIO 19 (12-20 (CALC)); CARBON DIOXIDE 28 mmol/l (22-30); CHLORIDE 98 mmol/l (95-108); CREATININE 0.4 mg/dL (0.5-1.0); GFR FOR AFR.AMER. > 60 ML/MIN (>=60 (CALC)); GFR OTHER RACES > 60 ML/MIN (>=60 (CALC)); MAGNESIUM 1.8 mg/dL (1.6-2.3); SODIUM 135 mmol/l (137-146)
[2022-11-01 08:42] LABS: HEMATOCRIT 31.6 % (37.0-47.0); MEAN CELL VOLUME 82.1 fL CALC (80.0-100.0); MEAN CORPUSCULAR HGB 28.6 pG CALC (26.0-32.0); MEAN CORPUSCULAR HGB CONC 34.8 g/dL CAL (32.0-36.0); RED BLOOD COUNT 3.85 mill/uL (4.20-5.60); RED CELL DISTRI WIDTH 15.8 % (11.5-15.5)
[2022-11-01 10:00] VITALS: BP 147/66
--- NOTE | 2022-11-01 10:05 | NUR ---
DR. DIAZ AT BEDSIDE.
--- NOTE | 2022-11-01 11:31 | NUR ---
PT TRANSFERED TO RADIOLOGY VIA BED.
--- NOTE | 2022-11-01 12:20 | NUR ---
DR. CRAWFORD AT BEDSIDE TO CHANGE SPLINT DRESSING AND ASSESS ANKLE FX.
[2022-11-01 14:00] VITALS: BP 131/74
--- NOTE | 2022-11-01 14:32 | NUR ---
PT ACCEPTED FOR TRANSFER TO [facility] FOR ORIF OF RIGHT FOOT. ROOM 329. PENDING TRANSPORT ETA.
--- NOTE | 2022-11-01 15:34 | NUR ---
UPDATE GIVE TO DAUGHTER SEBASTIEN AND SON BELLA REGARDING TRANSFER AND SURGERY NEEDED. PT AND FAMILY MEMBER DENIES ANY FURTHER QUESTIONS. WILL UP DATE WHEN PT HAS AN ETA FOR TRANSPORT. RECORDS BEING OBTAINED FROM [employer] IN [place].
--- NOTE | 2022-11-01 15:38 | NUR ---
CONSENT OBTAINED FOR MEDICAL RECORDS REQUEST.
--- NOTE | 2022-11-01 18:46 | NUR ---
Discharge instructions given. Patient verbalizes understanding of same. Discharged in stable condition via Medical Transport to [facility] with staff. All belongings sent with pt.
--- NOTE | 2022-11-01 19:06 | NUR ---
REPORT GIVEN TO NOAH TOMLINSON AT [facility].
== END 2022-11-01 18:46 ==
LOC: ED 15:16 → ED-I 17:30 → ED 18:02 → MS2 18:03
PROVIDERS: Family Medicine; Internal Medicine; ADMIT Internal Medicine; ATTEND Internal Medicine
DX: R07.89 Other chest pain (principal); K59.00 Constipation, unspecified; R53.1 Weakness; S30.1XXA Contusion of abdominal wall, initial encounter; S92.011A Displaced fracture of body of right calcaneus, initial encounter for closed fracture; N39.0 Urinary tract infection, site not specified; M10.031 Idiopathic gout, right wrist; I11.0 Hypertensive heart disease with heart failure; I50.9 Heart failure, unspecified; E11.9 Type 2 diabetes mellitus without complications; I25.10 Atherosclerotic heart disease of native coronary artery without angina pectoris; I48.20 Chronic atrial fibrillation, unspecified; E78.5 Hyperlipidemia, unspecified; E87.6 Hypokalemia; V43.92XA Unspecified car occupant injured in collision with other type car in traffic accident, initial encounter; W22.10XA Striking against or struck by unspecified automobile airbag, initial encounter; Z95.1 Presence of aortocoronary bypass graft; Z79.01 Long term (current) use of anticoagulants; Z87.11 Personal history of peptic ulcer disease; Z79.4 Long term (current) use of insulin; Z20.822 Contact with and (suspected) exposure to COVID-19
CPT/HCPCS: Q9967

== ENCOUNTER 2023-08-14 12:33 | Inpatient (IN) | payer MEDICARE, MEDICAID ==
[~2023-08-14] VITALS: Ht 165.1 cm; Wt 74.1 kg
[~2023-08-14 12:33] MED LIST changes: +FOLIC ACID1 MG PO; +LANTUS SOL100 UNIT/M SC; +LASIX 40 MG TAB40 MG PO; +METOPROL TAR25 MG PO; -METOPROLOL SUCC50 MG PO; +OMEPRAZOLE DR40 MG PO; +SUCRALFATE1 GM PO
[2023-08-14 12:45] VITALS: BP 124/102
[2023-08-14] MEDS ORDERED: GLIPIZIDE ER2.5 MG PO (12:51)
[2023-08-14] MEDS ORDERED: BACTRIM DS1 TAB PO (12:51)
[2023-08-14 13:01] VITALS: BP 156/71
[2023-08-14 13:10] LABS: BASO% 0.2 % (0-3); EOS% 0.9 % (0-8); HEMATOCRIT 40.4 % (37.0-47.0); HEMOGLOBIN 13.1 g/dl (12.0-16.0); IMMATURE GRANULOCYTES 0.4 % (0.0-5.0); LYMPH% 17.4 % (15-41); MEAN CORPUSCULAR HGB 30.8 pG CALC (26.0-32.0); MEAN CORPUSCULAR HGB CONC 32.4 g/dL CAL (32.0-36.0); MONO% 6.5 % (2-13); NEUT# 4.03 thou/uL (2.00-7.15); NEUT% 74.6 % (42-76); RED BLOOD COUNT 4.25 mill/uL (4.20-5.60); RED CELL DISTRI WIDTH 13.5 % (11.5-15.5)
[2023-08-14 13:11] LABS: MEAN CELL VOLUME 95.1 fL CALC (80.0-100.0)
[2023-08-14 13:40] LABS: ALBUMIN 4.4 g/dL (3.2-5.0); ALKALINE PHOSPHATASE 93 u/l (38-126); ANION GAP 13 (6-22 (CALC)); BILIRUBIN, TOTAL 0.9 mg/dL (0.02-1.3); BUN 19 mg/dL (8-23); BUN/CREATININE RATIO 22 (12-20 (CALC)); CARBON DIOXIDE 24 mmol/l (22-30); CHLORIDE 105 mmol/l (95-108); CREATININE 0.8 mg/dL (0.5-1.0); GFR FOR AFR.AMER. > 60 ML/MIN (>=60 (CALC)); GFR OTHER RACES > 60 ML/MIN (>=60 (CALC)); POTASSIUM 2.8 mmol/l (3.5-5.1); SGOT/AST 31 u/l (9-36); SODIUM 139 mmol/l (137-146); TOTAL PROTEIN 7.3 g/dL (6.3-8.2)
[2023-08-14] MEDS ORDERED: ISOSORBIDE MONO30 MG PO (14:31)
[2023-08-14 18:40] LABS: URINE BILIRUBIN - DIPSTICK Negative (NEGATIVE); URINE BLOOD DIPSTICK Trace-intact (NEGATIVE); URINE GLUCOSE - DIPSTICK Negative (NEGATIVE); URINE KETONE Negative (NEGATIVE); URINE LEUK ESTERASE Negative (NEGATIVE); URINE NITRITE - DIPSTICK Negative (Negative); URINE PH 5.5 (4.5-8.0); URINE PROTEIN - DIPSTICK Negative (NEG-TRACE); URINE SPECIFIC GRAVITY 1.015; URINE UROBILINOGEN - DIPSTICK 0.2 E.U./dL (0.2)
[2023-08-14 18:41] LABS: URINE COLOR Yellow
[2023-08-14 20:45] VITALS: BP 167/58
[2023-08-15] VITALS (7 sets, daily range): BP systolic 149–186; BP diastolic 62–80
[2023-08-15 05:29] LABS: BASO% 0.4 % (0-3); EOS% 1.8 % (0-8); HEMATOCRIT 43.5 % (37.0-47.0); HEMOGLOBIN 13.5 g/dl (12.0-16.0); IMMATURE GRANULOCYTES 0.2 % (0.0-5.0); LYMPH% 25.3 % (15-41); MEAN CORPUSCULAR HGB 31.6 pG CALC (26.0-32.0); MONO% 8.6 % (2-13); NEUT# 3.28 thou/uL (2.00-7.15); NEUT% 63.7 % (42-76); RED BLOOD COUNT 4.27 mill/uL (4.20-5.60); RED CELL DISTRI WIDTH 13.5 % (11.5-15.5)
[2023-08-15 05:35] LABS: ALBUMIN 4.2 g/dL (3.2-5.0); ALKALINE PHOSPHATASE 91 u/l (38-126); BUN 20 mg/dL (8-23); BUN/CREATININE RATIO 23 (12-20 (CALC)); CHLORIDE 106 mmol/l (95-108); CREATININE 0.9 mg/dL (0.5-1.0); GFR FOR AFR.AMER. > 60 ML/MIN (>=60 (CALC)); GFR OTHER RACES 60 ML/MIN (>=60 (CALC)); MAGNESIUM 1.6 mg/dL (1.6-2.3); SGOT/AST 32 u/l (9-36); SODIUM 138 mmol/l (137-146); TOTAL PROTEIN 7.3 g/dL (6.3-8.2)
[2023-08-15 05:38] LABS: ANION GAP 17 (6-22 (CALC)); POTASSIUM 3.3 mmol/l (3.5-5.1)
[2023-08-15 06:05] LABS: CARBON DIOXIDE 18 mmol/l (22-30)
[2023-08-15 06:43] LABS: MEAN CELL VOLUME 101.9 fL CALC (80.0-100.0)
[2023-08-16 00:03] VITALS: BP 133/80
[2023-08-16 04:45] VITALS: BP 155/70
[2023-08-16 05:31] LABS: BASO% 0.2 % (0-3); EOS% 1.9 % (0-8); HEMATOCRIT 38.7 % (37.0-47.0); HEMOGLOBIN 12.8 g/dl (12.0-16.0); IMMATURE GRANULOCYTES 0.2 % (0.0-5.0); LYMPH% 27.8 % (15-41); MEAN CORPUSCULAR HGB 31.5 pG CALC (26.0-32.0); MEAN CORPUSCULAR HGB CONC 33.1 g/dL CAL (32.0-36.0); MONO% 9.3 % (2-13); NEUT# 2.86 thou/uL (2.00-7.15); NEUT% 60.6 % (42-76); RED BLOOD COUNT 4.06 mill/uL (4.20-5.60)
[2023-08-16 05:38] LABS: MEAN CELL VOLUME 95.3 fL CALC (80.0-100.0)
[2023-08-16 05:41] LABS: ALBUMIN 4.2 g/dL (3.2-5.0); ALKALINE PHOSPHATASE 83 u/l (38-126); BILIRUBIN, TOTAL 0.7 mg/dL (0.02-1.3); BUN 17 mg/dL (8-23); BUN/CREATININE RATIO 26 (12-20 (CALC)); CHLORIDE 103 mmol/l (95-108); CREATININE 0.6 mg/dL (0.5-1.0); GFR FOR AFR.AMER. > 60 ML/MIN (>=60 (CALC)); GFR OTHER RACES > 60 ML/MIN (>=60 (CALC)); MAGNESIUM 1.6 mg/dL (1.6-2.3); POTASSIUM 3.1 mmol/l (3.5-5.1); SGOT/AST 25 u/l (9-36); SODIUM 135 mmol/l (137-146)
[2023-08-16 05:44] LABS: ANION GAP 10 (6-22 (CALC)); CARBON DIOXIDE 25 mmol/l (22-30)
[2023-08-16 06:51] VITALS: BP 160/68
[2023-08-16 10:58] VITALS: BP 141/64
[2023-08-16 15:18] VITALS: BP 149/64
[2023-08-16 19:38] VITALS: BP 114/96
[2023-08-17] VITALS (11 sets, daily range): BP systolic 147–181; BP diastolic 55–94
[2023-08-17 05:19] LABS: BASO% 0.2 % (0-3); EOS% 2.1 % (0-8); HEMOGLOBIN 13.6 g/dl (12.0-16.0); IMMATURE GRANULOCYTES 0.5 % (0.0-5.0); LYMPH% 32.2 % (15-41); MEAN CELL VOLUME 95.5 fL CALC (80.0-100.0); MEAN CORPUSCULAR HGB 30.9 pG CALC (26.0-32.0); MEAN CORPUSCULAR HGB CONC 32.4 g/dL CAL (32.0-36.0); MONO% 9.5 % (2-13); NEUT# 2.4 thou/uL (2.00-7.15); NEUT% 55.5 % (42-76); RED BLOOD COUNT 4.4 mill/uL (4.20-5.60)
[2023-08-17 05:48] LABS: ALBUMIN 4.1 g/dL (3.2-5.0); ALKALINE PHOSPHATASE 81 u/l (38-126); ANION GAP 15 (6-22 (CALC)); BILIRUBIN, TOTAL 0.8 mg/dL (0.02-1.3); BUN 18 mg/dL (8-23); BUN/CREATININE RATIO 33 (12-20 (CALC)); CARBON DIOXIDE 26 mmol/l (22-30); CHLORIDE 102 mmol/l (95-108); CREATININE 0.5 mg/dL (0.5-1.0); GFR FOR AFR.AMER. > 60 ML/MIN (>=60 (CALC)); GFR OTHER RACES > 60 ML/MIN (>=60 (CALC)); MAGNESIUM 1.6 mg/dL (1.6-2.3); POTASSIUM 3.6 mmol/l (3.5-5.1); SGOT/AST 29 u/l (9-36); SODIUM 139 mmol/l (137-146); TOTAL PROTEIN 6.9 g/dL (6.3-8.2)
[2023-08-18] VITALS (8 sets, daily range): BP systolic 153–174; BP diastolic 58–83
[2023-08-18 05:40] LABS: HEMATOCRIT 39.3 % (37.0-47.0); HEMOGLOBIN 12.9 g/dl (12.0-16.0); MEAN CELL VOLUME 95.4 fL CALC (80.0-100.0); MEAN CORPUSCULAR HGB 31.3 pG CALC (26.0-32.0); MEAN CORPUSCULAR HGB CONC 32.8 g/dL CAL (32.0-36.0); RED BLOOD COUNT 4.12 mill/uL (4.20-5.60); RED CELL DISTRI WIDTH 12.9 % (11.5-15.5)
[2023-08-18 06:03] LABS: ALKALINE PHOSPHATASE 77 u/l (38-126); ANION GAP 13 (6-22 (CALC)); BILIRUBIN, TOTAL 0.5 mg/dL (0.02-1.3); BUN 18 mg/dL (8-23); BUN/CREATININE RATIO 31 (12-20 (CALC)); CARBON DIOXIDE 25 mmol/l (22-30); CHLORIDE 101 mmol/l (95-108); CREATININE 0.6 mg/dL (0.5-1.0); GFR FOR AFR.AMER. > 60 ML/MIN (>=60 (CALC)); GFR OTHER RACES > 60 ML/MIN (>=60 (CALC)); MAGNESIUM 1.6 mg/dL (1.6-2.3); POTASSIUM 3.3 mmol/l (3.5-5.1); SGOT/AST 29 u/l (9-36); SODIUM 136 mmol/l (137-146); TOTAL PROTEIN 6.8 g/dL (6.3-8.2)
[2023-08-19 00:03] VITALS: BP 177/77
[2023-08-19 03:50] VITALS: BP 163/69
[2023-08-19 04:05] VITALS: BP 163/69
[2023-08-19 05:55] LABS: HEMATOCRIT 40.1 % (37.0-47.0); HEMOGLOBIN 13.1 g/dl (12.0-16.0); MEAN CELL VOLUME 95.5 fL CALC (80.0-100.0); MEAN CORPUSCULAR HGB 31.2 pG CALC (26.0-32.0); MEAN CORPUSCULAR HGB CONC 32.7 g/dL CAL (32.0-36.0); RED BLOOD COUNT 4.2 mill/uL (4.20-5.60); RED CELL DISTRI WIDTH 12.8 % (11.5-15.5)
[2023-08-19 06:04] LABS: ALKALINE PHOSPHATASE 90 u/l (38-126); ANION GAP 14 (6-22 (CALC)); BILIRUBIN, TOTAL 0.5 mg/dL (0.02-1.3); BUN 21 mg/dL (8-23); BUN/CREATININE RATIO 35 (12-20 (CALC)); CARBON DIOXIDE 25 mmol/l (22-30); CHLORIDE 102 mmol/l (95-108); CREATININE 0.6 mg/dL (0.5-1.0); GFR FOR AFR.AMER. > 60 ML/MIN (>=60 (CALC)); GFR OTHER RACES > 60 ML/MIN (>=60 (CALC)); MAGNESIUM 1.8 mg/dL (1.6-2.3); POTASSIUM 3.8 mmol/l (3.5-5.1); SGOT/AST 28 u/l (9-36); SODIUM 137 mmol/l (137-146); TOTAL PROTEIN 6.6 g/dL (6.3-8.2)
[2023-08-19 10:55] VITALS: BP 115/68
[2023-08-19] MEDS ORDERED: LOSARTAN POTASS50 MG PO (12:27)
[2023-08-19] MEDS ORDERED: BUMETANIDE1 MG PO (12:28)
[2023-08-19 15:13] VITALS: BP 114/64
== END 2023-08-19 17:06 | disposition home or self-care (01) | DRG 292 ==
LOC: ED 12:33 → ED-I 14:00 → ED 14:19 → MS2 14:20 → ED-I 14:20 → MS2 18:23
PROVIDERS: Family Medicine; Nurse Practitioner; Nurse Practitioner Family; Student in an Organized Health Care Education/Training Program; ADMIT Internal Medicine; ATTEND Internal Medicine
DX: I11.0 Hypertensive heart disease with heart failure (principal); I48.20 Chronic atrial fibrillation, unspecified; I50.9 Heart failure, unspecified; E87.6 Hypokalemia; E11.9 Type 2 diabetes mellitus without complications; I25.10 Atherosclerotic heart disease of native coronary artery without angina pectoris; E78.5 Hyperlipidemia, unspecified; R19.7 Diarrhea, unspecified; Z95.1 Presence of aortocoronary bypass graft; Z79.84 Long term (current) use of oral hypoglycemic drugs; Z79.01 Long term (current) use of anticoagulants; Z20.822 Contact with and (suspected) exposure to COVID-19
CPT/HCPCS: J3475

== ENCOUNTER 2023-12-30 06:13 | Day surgery (SDC) | payer MEDICARE, MEDICAID ==
[~2023-12-30] VITALS: Ht 165.1 cm; Wt 63.5 kg
[~2023-12-30 06:13] MED LIST changes: +BACTRIM DS1 TAB PO; +BUMETANIDE1 MG PO; +CARAFATE1 GM PO; +DICYCLOMINE HYD10 MG PO; +GLIPIZIDE ER2.5 MG PO; +ISOSORBIDE MONO30 MG PO; +LOSARTAN POTASS50 MG PO
[2023-12-30] MEDS ORDERED: SODIUM CHLORIDE 0.9% 1,000 ML IV ONE (06:35)
[2023-12-30] MEDS ORDERED: FAMOTIDINE 10MG/ML 2ML SDV IV ONE (06:35)
[2023-12-30 08:15] VITALS: BP 111/49
[2023-12-30] MEDS ORDERED: GLYCOPYRROLATE 0.2 MG/ML IV ONE (13:24)
[2023-12-30] MEDS ORDERED: LIDOCAINE HCL 2% 2ML SDV IV ONE (13:24)
[2023-12-30] MEDS ORDERED: PROPOFOL 200 MG/20 ML VIAL IV ONE (13:24)
== END 2023-12-30 08:25 | disposition home or self-care (01) ==
LOC: ORM 06:13
PROVIDERS: ATTEND Internal Medicine Gastroenterology
PROC: 0DB48ZX Excision of Esophagogastric Junction, Via Natural or Artificial Opening Endoscopic, Diagnostic (ICD-10-PCS; principal; 2023-12-30)
PROC: 0DB78ZX Excision of Stomach, Pylorus, Via Natural or Artificial Opening Endoscopic, Diagnostic (ICD-10-PCS; 2023-12-30)
PROC: 0DB68ZX Excision of Stomach, Via Natural or Artificial Opening Endoscopic, Diagnostic (ICD-10-PCS; 2023-12-30)
DX: K25.9 Gastric ulcer, unspecified as acute or chronic, without hemorrhage or perforation (principal); K29.60 Other gastritis without bleeding; K44.9 Diaphragmatic hernia without obstruction or gangrene; K31.9 Disease of stomach and duodenum, unspecified; E11.40 Type 2 diabetes mellitus with diabetic neuropathy, unspecified; I10 Essential (primary) hypertension; I25.810 Atherosclerosis of coronary artery bypass graft(s) without angina pectoris; Z79.84 Long term (current) use of oral hypoglycemic drugs; Z87.11 Personal history of peptic ulcer disease

== ENCOUNTER 2024-01-15 11:50 | Observation (INO) | payer MEDICARE, MEDICAID ==
[~2024-01-15] VITALS: Ht 165.1 cm; Wt 60.9 kg
[2024-01-15] VITALS (40 sets, daily range): BP systolic 96–139; BP diastolic 35–114
[2024-01-15] MEDS ORDERED: LACTATED RINGER'S 1,000 ML IV ONE (12:20)
[2024-01-15] MEDS ORDERED: FAMOTIDINE 10MG/ML 2ML SDV IV ONE (12:20)
[2024-01-15] MEDS ORDERED: Pantoprazole Sodium 40 MG VIAL (Protonix) IV ONE (12:20)
[2024-01-15] MEDS ORDERED: ALUM & MAG HYDROX-SIMETHICONE 30 ML PO ONE (12:25)
[2024-01-15] MEDS ORDERED: LIDOCAINE VISCOUS 2% 15 ML UDC PO ONE (12:25)
[2024-01-15] MEDS ORDERED: ONDANSETRON HCl 4 MG/2 ML SDV IV ONE (12:25)
[2024-01-15 12:27] LABS: BASO% 0.1 % (0-3); EOS% 0.4 % (0-8); HEMATOCRIT 47.6 % (37.0-47.0); IMMATURE GRANULOCYTES 0.4 % (0.0-5.0); LYMPH% 17.3 % (15-41); MEAN CELL VOLUME 86.9 fL CALC (80.0-100.0); MEAN CORPUSCULAR HGB CONC 35.7 g/dL CAL (32.0-36.0); MONO% 7.7 % (2-13); NEUT# 7.83 thou/uL (2.00-7.15); NEUT% 74.1 % (42-76); RED BLOOD COUNT 5.48 mill/uL (4.20-5.60); RED CELL DISTRI WIDTH 12.8 % (11.5-15.5)
[2024-01-15 13:01] LABS: ALBUMIN 4.8 g/dL (3.2-5.0); ALKALINE PHOSPHATASE 116 u/l (38-126); ANION GAP 16 (6-22 (CALC)); BILIRUBIN, TOTAL 1.2 mg/dL (0.02-1.3); BUN 32 mg/dL (8-23); BUN/CREATININE RATIO 33 (12-20 (CALC)); CARBON DIOXIDE 21 mmol/l (22-30); CHLORIDE 98 mmol/l (95-108); GFR FOR AFR.AMER. > 60 ML/MIN (>=60 (CALC)); GFR OTHER RACES 53 ML/MIN (>=60 (CALC)); LIPASE 88 u/l (23-300); SGOT/AST 44 u/l (9-36); SODIUM 130 mmol/l (137-146); TOTAL PROTEIN 8.7 g/dL (6.3-8.2)
[2024-01-15 13:04] LABS: POTASSIUM 5.2 mmol/l (3.5-5.1)
[2024-01-15 15:24] LABS: URINE BILIRUBIN - DIPSTICK Negative (NEGATIVE); URINE BLOOD DIPSTICK Trace-intact (NEGATIVE); URINE GLUCOSE - DIPSTICK 100 mg/dL (NEGATIVE); URINE KETONE Negative (NEGATIVE); URINE LEUK ESTERASE Trace (NEGATIVE); URINE NITRITE - DIPSTICK Negative (Negative); URINE PROTEIN - DIPSTICK Negative (NEG-TRACE); URINE SPECIFIC GRAVITY 1.015; URINE UROBILINOGEN - DIPSTICK 0.2 E.U./dL (0.2)
[2024-01-15 15:26] LABS: URINE COLOR Yellow
[2024-01-15] MEDS ORDERED: ACETAMINOPHEN 325 MG/TAB PO PRN (15:55)
[2024-01-15] MEDS ORDERED: MAGNESIUM HYDROXIDE 30 ML UDC PO PRN (15:55)
[2024-01-15] MEDS ORDERED: SODIUM CHLORIDE 0.9% 1,000 ML IV PRN (15:55)
[2024-01-15] MEDS ORDERED: ENOXAPARIN SODIUM 40 MG/0.4 ML SYR SC SCH (21:00)
[2024-01-16] VITALS (9 sets, daily range): BP systolic 104–133; BP diastolic 40–57
[2024-01-16] MEDS ORDERED: ONDANSETRON HCl 4 MG/2 ML SDV IV PRN (02:15)
[2024-01-16 06:16] LABS: BASO% 0.2 % (0-3); EOS% 0.5 % (0-8); IMMATURE GRANULOCYTES 0.3 % (0.0-5.0); LYMPH% 24.6 % (15-41); MEAN CORPUSCULAR HGB 31.5 pG CALC (26.0-32.0); MEAN CORPUSCULAR HGB CONC 35.8 g/dL CAL (32.0-36.0); MONO% 8.3 % (2-13); NEUT# 5.79 thou/uL (2.00-7.15); NEUT% 66.1 % (42-76); RED BLOOD COUNT 4.67 mill/uL (4.20-5.60); RED CELL DISTRI WIDTH 12.5 % (11.5-15.5)
[2024-01-16 06:22] LABS: HEMATOCRIT 41.1 % (37.0-47.0); HEMOGLOBIN 14.7 g/dl (12.0-16.0)
[2024-01-16 06:24] LABS: ANION GAP 13 (6-22 (CALC)); BUN 26 mg/dL (8-23); BUN/CREATININE RATIO 31 (12-20 (CALC)); CARBON DIOXIDE 22 mmol/l (22-30); CHLORIDE 102 mmol/l (95-108); CREATININE 0.8 mg/dL (0.5-1.0); GFR FOR AFR.AMER. > 60 ML/MIN (>=60 (CALC)); GFR OTHER RACES > 60 ML/MIN (>=60 (CALC)); MAGNESIUM 1.6 mg/dL (1.6-2.3); POTASSIUM 4.3 mmol/l (3.5-5.1); SODIUM 133 mmol/l (137-146)
[2024-01-16] MEDS ORDERED: PANTOPRAZOLE SODIUM Sesquihydr 40 MG/TAB PO SCH (09:24)
[2024-01-16] MEDS ORDERED: Pantoprazole Sodium 40 MG VIAL (Protonix) IV SCH (10:00)
[2024-01-16] MEDS ORDERED: DEXTROSE 250 ML IV PRN (10:55)
[2024-01-16] MEDS ORDERED: INSULIN LISPRO 100 UNITS/ML ML SC SCH (11:00)
[2024-01-16] MEDS ORDERED: SUCRALFATE 1 GM/TAB PO SCH (11:00)
[2024-01-16] MEDS ORDERED: glipiZIDE 2.5 MG EXTENDED RELEASE TAB PO SCH (12:00)
[2024-01-16] MEDS ORDERED: MAGNESIUM SULFATE HEPTAHYDRATE 50 ML IV SCH (12:00)
[2024-01-16] MEDS ORDERED: BUMETANIDE 1 MG/TAB PO SCH (12:00)
[2024-01-16] MEDS ORDERED: METOPROLOL TARTRATE 25 MG/TAB PO SCH (12:00)
[2024-01-16] MEDS ORDERED: LIDOCAINE VISCOUS 2% 15 ML UDC PO SCH (13:00)
[2024-01-16] MEDS ORDERED: ALUM & MAG HYDROX-SIMETHICONE 30 ML PO SCH (13:00)
[2024-01-16] MEDS ORDERED: TYLENOL500 MG PO (13:53)
[2024-01-17 04:16] VITALS: BP 100/40
[2024-01-17 04:30] VITALS: BP 100/40
[2024-01-17 04:53] LABS: BASO% 0.3 % (0-3); EOS% 1.5 % (0-8); HEMATOCRIT 40.3 % (37.0-47.0); HEMOGLOBIN 14.1 g/dl (12.0-16.0); IMMATURE GRANULOCYTES 0.3 % (0.0-5.0); LYMPH% 34.1 % (15-41); MEAN CELL VOLUME 89.4 fL CALC (80.0-100.0); MEAN CORPUSCULAR HGB 31.3 pG CALC (26.0-32.0); MONO% 9.5 % (2-13); NEUT# 4.11 thou/uL (2.00-7.15); NEUT% 54.3 % (42-76); RED BLOOD COUNT 4.51 mill/uL (4.20-5.60); RED CELL DISTRI WIDTH 12.6 % (11.5-15.5)
[2024-01-17 05:22] LABS: ANION GAP 9 (6-22 (CALC)); BUN 16 mg/dL (8-23); BUN/CREATININE RATIO 21 (12-20 (CALC)); CHLORIDE 102 mmol/l (95-108); CREATININE 0.8 mg/dL (0.5-1.0); GFR FOR AFR.AMER. > 60 ML/MIN (>=60 (CALC)); GFR OTHER RACES > 60 ML/MIN (>=60 (CALC)); POTASSIUM 4.2 mmol/l (3.5-5.1); SODIUM 134 mmol/l (137-146)
[2024-01-17 05:23] LABS: CARBON DIOXIDE 27 mmol/l (22-30)
[2024-01-17 06:35] VITALS: BP 96/42
[2024-01-17] MEDS ORDERED: CARAFATE1 GM PO (09:39)
[2024-01-17 10:31] VITALS: BP 97/41
== END 2024-01-17 13:01 | disposition home or self-care (01) ==
LOC: ED 11:50 → ED-I 12:18 → ED 16:02 → ED-I 16:03 → MS2 16:03
PROVIDERS: Family Medicine; ADMIT Student in an Organized Health Care Education/Training Program; ATTEND Student in an Organized Health Care Education/Training Program
DX: K25.9 Gastric ulcer, unspecified as acute or chronic, without hemorrhage or perforation (principal); K29.70 Gastritis, unspecified, without bleeding; K44.9 Diaphragmatic hernia without obstruction or gangrene; E86.0 Dehydration; I11.0 Hypertensive heart disease with heart failure; I50.9 Heart failure, unspecified; E11.65 Type 2 diabetes mellitus with hyperglycemia; I25.10 Atherosclerotic heart disease of native coronary artery without angina pectoris; E78.5 Hyperlipidemia, unspecified; I48.20 Chronic atrial fibrillation, unspecified; Z95.1 Presence of aortocoronary bypass graft; Z79.84 Long term (current) use of oral hypoglycemic drugs
CPT/HCPCS: G0378; J1650; J3475; Q9967; S0164

== ENCOUNTER 2024-08-15 11:28 | Inpatient (IN) | payer MEDICARE ==
[~2024-08-15] VITALS: Ht 165.1 cm; Wt 58.8 kg
[2024-08-15] VITALS (24 sets, daily range): BP systolic 98–167; BP diastolic 33–71
[~2024-08-15 11:28] MED LIST changes: +TYLENOL500 MG PO
[2024-08-15] MEDS ORDERED: SODIUM CHLORIDE 0.9% 500 ML IV ONE ×2 (12:00→12:55)
--- NOTE | 2024-08-15 12:00 | NUR ---
PT TO ROOM 12 VIA WHEELCHAIR
[2024-08-15 12:15] LABS: BASO% 0.3 % (0-3); EOS% 0.9 % (0-8); HEMATOCRIT 22.3 % (37.0-47.0); IMMATURE GRANULOCYTES 0.4 % (0.0-5.0); LYMPH% 14.9 % (15-41); MEAN CORPUSCULAR HGB 22.9 pG CALC (26.0-32.0); MEAN CORPUSCULAR HGB CONC 29.1 g/dL CAL (32.0-36.0); MONO% 8.2 % (2-13); NEUT# 5.17 thou/uL (2.00-7.15); NEUT% 75.3 % (42-76); RED BLOOD COUNT 2.84 mill/uL (4.20-5.60); RED CELL DISTRI WIDTH 14.7 % (11.5-15.5)
[2024-08-15 12:28] LABS: URINE BLOOD DIPSTICK Trace-intact (NEGATIVE); URINE GLUCOSE - DIPSTICK Negative (NEGATIVE); URINE KETONE Trace mg/dL (NEGATIVE); URINE NITRITE - DIPSTICK Negative (Negative); URINE PH 5.5 (4.5-8.0); URINE PROTEIN - DIPSTICK 30 mg/dL (NEG-TRACE); URINE SPECIFIC GRAVITY 1.025; URINE UROBILINOGEN - DIPSTICK 0.2 E.U./dL (0.2)
[2024-08-15 12:40] LABS: ALBUMIN 4.2 g/dL (3.2-5.0); BILIRUBIN, TOTAL 0.5 mg/dL (0.02-1.3); CREATININE 0.5 mg/dL (0.5-1.0); POTASSIUM 3.3 mmol/l (3.5-5.1); TOTAL PROTEIN 7.4 g/dL (6.3-8.2)
[2024-08-15 12:45] LABS: URINE COLOR Yellow; URINE LEUK ESTERASE Small (NEGATIVE)
[2024-08-15] MEDS ORDERED: ONDANSETRON HCl 4 MG/2 ML SDV IV ONE (12:45)
[2024-08-15 12:46] LABS: URINE BACTERIA FEW hpf; URINE EPITHELIAL CELLS MODERATE EPI/hpf (0-FEW); URINE MUCUS FEW hpf (NONE-FEW); URINE RBC 0-2 RBC/hpf (0-5)
[2024-08-15 12:53] LABS: HEMOGLOBIN 6.5 g/dl (12.0-16.0); MEAN CELL VOLUME 78.5 fL CALC (80.0-100.0)
--- NOTE | 2024-08-15 13:11 | NUR ---
PT DOWN FOR CT SCAN AT THIS TIME.
[2024-08-15] MEDS ORDERED: AMLODIPINE BES2.5 MG PO (13:20)
[2024-08-15] MEDS ORDERED: ALDACTONE100 MG PO (13:21)
[2024-08-15] MEDS ORDERED: PLAVIX75 MG PO (13:22)
[2024-08-15] MEDS ORDERED: ABILIFY10 MG PO (13:24)
[2024-08-15] MEDS ORDERED: ASPIRINCHW 81MG PO (13:25)
[2024-08-15] MEDS ORDERED: LYRICA25 MG PO (13:27)
[2024-08-15] MEDS ORDERED: CARVEDILOL3.125 MG PO (13:28)
--- NOTE | 2024-08-15 13:43 | NUR ---
PT C/O CP AND LEFT ARM NUMBNESS WELL A HEADACHE. STAT EKG OBTAINED AND ANTENNA RIGGER NOTIFIED.
[2024-08-15] MEDS ORDERED: MORPHINE SULFATE 4 MG/ML VIAL IV ONE (13:45)
--- NOTE | 2024-08-15 14:07 | NUR ---
REPORT GIVEN TO DEVORA TOMLINSON
[2024-08-15] MEDS ORDERED: DEXTROSE 250 ML IV PRN (14:55)
[2024-08-15] MEDS ORDERED: ACETAMINOPHEN 325 MG/TAB PO PRN (14:55)
[2024-08-15] MEDS ORDERED: SODIUM CHLORIDE 0.9% 1,000 ML IV PRN (14:55)
[2024-08-15] MEDS ORDERED: MAGNESIUM HYDROXIDE 30 ML UDC PO PRN (14:55)
--- NOTE | 2024-08-15 15:15 | NUR ---
REPORT RECEIVED FROM AAYUSH IN ER. PATIENT ARRIVED TO ROOM 271 VIA STRETCHER AT 1505. PATIENT ALERT AND ORIENTED AND ABLE TO MAKE NEEDS KNOWN. DENIES PAIN OR DISCOMFORT STATING "THE MORPHINE REALLY HELPED". PATIENT NOTED TO HAVE A HGB OF 6.5. PATIENT ARRIVED WITH 1ST UNIT OF BLOOD TRANSFUSING. NO REACTION NOTED. RESPIRATIONS EVEN AND UNLABORED ON ROOM AIR. PATIENT STATES THAT SHE IS WEAK AT THSI TIME. DAUGHTER AT BEDSIDE AT TIME OF ADMISSION. ORIENTED TO ROOM AND CALL LIGHT. SAFETY MEASURES INPLACE.
--- NOTE | 2024-08-15 15:16 | NUR ---
PT TRANSFERRED TO 271 VIA STRETCHER. RN AT BEDSIDE.
[2024-08-15] MEDS ORDERED: SUCRALFATE 1 GM/TAB PO SCH (17:00)
[2024-08-15 17:56] LABS: HEMATOCRIT 26.3 % (37.0-47.0); HEMOGLOBIN 8.1 g/dl (12.0-16.0)
[2024-08-15] MEDS ORDERED: Pantoprazole Sodium 40 MG VIAL (Protonix) IV SCH (18:00)
--- NOTE | 2024-08-15 19:23 | NUR ---
SECOND UNIT OF BLOOD STARTED AT 1800. ONCOMING NURSE MADE AWARE DURING NURSE TO NURSE REPORT. NO CINCERNS VOICED BY PATIENT ST THIS TIME. SAFETY MEASURES IN PLACE.
--- NOTE | 2024-08-15 20:00 | NUR ---
2nd unit of blood completed at 1958,judy not in distress, no allergic reaction noted from the blood.
[2024-08-15] MEDS ORDERED: CARVEDILOL 3.125 MG/TAB PO SCH (21:00)
[2024-08-15] MEDS ORDERED: PREGABALIN 50 MG/CAP PO SCH (21:00)
--- NOTE | 2024-08-15 21:00 | NUR ---
ORDER TO GET CONSENT FOR EGD, SECURED.
[2024-08-16] VITALS (12 sets, daily range): BP systolic 131–154; BP diastolic 33–92
--- NOTE | 2024-08-16 | NUR ---
PATINET NOW ON NPO, FOOD AND FLUIDS REMOVED AT BEDSIDE. PATIENT VERBALIZED UNDERSTANDING
[2024-08-16 00:38] LABS: HEMATOCRIT 28.4 % (37.0-47.0); HEMOGLOBIN 9.1 g/dl (12.0-16.0)
--- NOTE | 2024-08-16 03:49 | NUR ---
PATIENT RESTING IN BED, REMAINS ON NPO, BREATHING EVEN UNALBORED CALL LIGHT WITHIN REACHED.
[2024-08-16 05:36] LABS: HEMATOCRIT 29.5 % (37.0-47.0); HEMOGLOBIN 9.3 g/dl (12.0-16.0)
--- NOTE | 2024-08-16 07:14 | NUR ---
PATIENT LAYING IN BED WITH EYES CLOSED BUT EASILY AROUSE. PATIENT A&OX4 AND ABLE TO MAKE NEEDS KNOWN. PATIENT DENIES AND NEEDS AT THIS TIME. WILL CONTINUE TO MONITOR.
--- NOTE | 2024-08-16 07:23 | NUR ---
PATIENT OFF UNIT TO OR.
[2024-08-16] MEDS ORDERED: LIDOCAINE HCL 2% 2ML SDV IV ONE (07:40)
[2024-08-16] MEDS ORDERED: PROPOFOL 200 MG/20 ML VIAL IV ONE (07:40)
[2024-08-16] MEDS ORDERED: INSULIN DETEMIR 100 UNITS/ML SC SCH (09:00)
[2024-08-16] MEDS ORDERED: DOCUSATE CALCIUM 240 MG/CAP PO SCH (10:30)
--- NOTE | 2024-08-16 10:30 | NUR ---
PATIENT BACK FROM OR.
[2024-08-16] MEDS ORDERED: SODIUM CHLORIDE 0.9% 1,000 ML IV ONE (10:46)
[2024-08-16] MEDS ORDERED: STERILE WATER FOR IRRIGATION 1,000 ML BTL IR ONE (10:46)
[2024-08-16] MEDS ORDERED: Peg 3350-POTASSIUM CHLORIDE-So 4,000 ML BTL PO SCH (11:00)
[2024-08-16] MEDS ORDERED: traMADol HCL 50 MG/TAB PO PRN (11:15)
[2024-08-16] MEDS ORDERED: MORPHINE SULFATE 4 MG/ML VIAL IV PRN (11:15)
--- NOTE | 2024-08-16 11:50 | NUR ---
PATIENT SITTING UP IN BED. PATIENT DENIES ANY NEEDS AT THIS TIME. WILL CONTINUE TO MONITOR.
[2024-08-16 12:09] LABS: HEMATOCRIT 28.6 % (37.0-47.0)
--- NOTE | 2024-08-16 16:15 | NUR ---
PATIENT SITTING UP ON SIDE OF BED. PATIENT C/O NAUSEA. PATIENT DENIES ANY NEEDS AT THIS TIME. WILL CONTINUE TO MONITOR.
[2024-08-16] MEDS ORDERED: ONDANSETRON HCl 4 MG/2 ML SDV IV PRN (16:20)
--- NOTE | 2024-08-16 20:00 | NUR ---
RECEIVED REPORT FROM NURSE LUNA, PATIENT SITTING IN BED, WATCHING TV, ON CLEAR LIQUID DIET, PATIENT REINFORCED ON BOWEL PREP STATED UNABLE TO DRINK MAKES HER NAUSEOUS, AND HAS BEEN HAVING MULTIPLE BOWEL MOVEMENTS WATERY, PATIENT GIVEN BROTH PER REQUEST, CALL LIGHT WITHIN REACHED.
--- NOTE | 2024-08-16 23:31 | NUR ---
REINFORCED THAT STARTING 12 AM PATIENT IS NPO, VERBALIZED UNDERSTANDING. WILL REMOVED FOOD AND FLUIDS AT BEDSIDE AT 12MIDNIGHT.
[2024-08-17] VITALS (11 sets, daily range): BP systolic 154–177; BP diastolic 44–73
--- NOTE | 2024-08-17 03:43 | NUR ---
PATIENT REMAINS NPO, CURRENTLY RESTING IN BED, NOT IN DISTRESS, BREATHING EVN UNLABORED CALL LIGHT WITHIN REACHED.
--- NOTE | 2024-08-17 04:43 | NUR ---
Patient refused to get daily weight done.
[2024-08-17 05:14] LABS: HEMATOCRIT 28.8 % (37.0-47.0); MEAN CELL VOLUME 80.2 fL CALC (80.0-100.0); MEAN CORPUSCULAR HGB 25.1 pG CALC (26.0-32.0); MEAN CORPUSCULAR HGB CONC 31.3 g/dL CAL (32.0-36.0); RED BLOOD COUNT 3.59 mill/uL (4.20-5.60); RED CELL DISTRI WIDTH 15.4 % (11.5-15.5)
[2024-08-17 05:34] LABS: BILIRUBIN, TOTAL 0.7 mg/dL (0.02-1.3); CREATININE 0.5 mg/dL (0.5-1.0); POTASSIUM 3.1 mmol/l (3.5-5.1)
[2024-08-17 05:35] LABS: ALBUMIN 3.1 g/dL (3.2-5.0); TOTAL PROTEIN 5.8 g/dL (6.3-8.2)
--- NOTE | 2024-08-17 06:19 | NUR ---
PATIENT REFUSED TO GET STAND UP YET UNABLE TO GET WEIGHT.
--- NOTE | 2024-08-17 07:07 | NUR ---
PATIENT LAYING IN BED. PATIENT A&OX4 AND ABLE TO MAKE NEEDS KNOWN. PATIENT IS NPO FOR A PROCEDURE SOME TIME TODAY. PATIENT DENIES ANY NEEDS AT THIS TIME. WILL CONTINUE TO MONITOR.
[2024-08-17] MEDS ORDERED: LIDOCAINE HCL 2% 2ML SDV IV ONE (07:40)
[2024-08-17] MEDS ORDERED: GLYCOPYRROLATE 0.2 MG/ML IV ONE (07:40)
[2024-08-17] MEDS ORDERED: PROPOFOL 200 MG/20 ML VIAL IV ONE (07:40)
--- NOTE | 2024-08-17 07:47 | NUR ---
PATIENT REFUSED OT HAVE HER SUGAR CHECKED THIS MORNING.
[2024-08-17] MEDS ORDERED: POTASSIUM CHLORIDE 20MEQ 100 ML IV SCH (08:30)
[2024-08-17] MEDS ORDERED: PREGABALIN 50 MG/CAP PO SCH (09:00)
--- NOTE | 2024-08-17 11:58 | NUR ---
PATIENT LAYING IN BED. PATIENT DENIES ANY NEEDS AT THIS TIME. WILL CONTINUE TO MONITOR.
--- NOTE | 2024-08-17 12:55 | NUR ---
PATIENT IS OFF UNIT TO OR.
[2024-08-17] MEDS ORDERED: SODIUM CHLORIDE 0.9% 1,000 ML IV ONE ×2 (13:06→17:27)
--- NOTE | 2024-08-17 16:01 | NUR ---
PATIENT IS STILL CURRENTLY OFF UNIT TO OR.
--- NOTE | 2024-08-17 23:59 | NUR ---
PT NOTED LAYING IN BED, SEMI FOLWERS. ON RM AIR. RESTING COMFORTABLY AT THIS TIME. NO S/S OF DISTRESS. CALL LIGHT WITHIN REACH AND SAFETY PRECAUTIONS IN PLACE.
--- NOTE | 2024-08-18 00:57 | NUR ---
REPORT GIVEN TO PB TOMLINSON
--- NOTE | 2024-08-18 02:06 | NUR ---
PATIENT RESTING IN BED AT THIS TIME-POSITIONED ON LEFT SIDE. EYES ARE CLOSED AND RESPS ARE EVEN AND UNLABORED. IVF NS PATENT AND INFUSING VIA RIGHT HAND AT 50CC/HR. TELE MONITOR IN PLACE AND REAING SR-60'S. CALL LIGHT IN REACH. WILL CONT TO MONITOR.
[2024-08-18 05:14] VITALS: BP 164/56
[2024-08-18 05:28] LABS: BASO% 0.5 % (0-3); EOS% 2.5 % (0-8); HEMATOCRIT 29.5 % (37.0-47.0); HEMOGLOBIN 9.2 g/dl (12.0-16.0); IMMATURE GRANULOCYTES 0.7 % (0.0-5.0); LYMPH% 18.1 % (15-41); MEAN CELL VOLUME 81.7 fL CALC (80.0-100.0); MEAN CORPUSCULAR HGB 25.5 pG CALC (26.0-32.0); MEAN CORPUSCULAR HGB CONC 31.2 g/dL CAL (32.0-36.0); MONO% 10.4 % (2-13); NEUT# 4.13 thou/uL (2.00-7.15); NEUT% 67.8 % (42-76); RED BLOOD COUNT 3.61 mill/uL (4.20-5.60); RED CELL DISTRI WIDTH 15.8 % (11.5-15.5)
[2024-08-18 05:43] LABS: ALBUMIN 3.1 g/dL (3.2-5.0); BILIRUBIN, TOTAL 0.8 mg/dL (0.02-1.3); CREATININE 0.4 mg/dL (0.5-1.0); MAGNESIUM 1.5 mg/dL (1.6-2.3); POTASSIUM 2.8 mmol/l (3.5-5.1); TOTAL PROTEIN 5.6 g/dL (6.3-8.2)
--- NOTE | 2024-08-18 05:55 | NUR ---
PATIENT RESTING IN BED AT THIS TIME WITH EYES CLOSED AND RESPS EVEN AND UNLABORED. DENIES ANY NEEDS A THIS TIME. PROTONIX IVP GIVEN ORDERED. IVF NS PATENT AND INFUSING VIA RIGHT HAND SITE. TELE MONITOR IN PLACE AND READING SR-63. CALL LIGHT IN REACH WILL CONT TO MONITOR.
[2024-08-18 06:21] VITALS: BP 135/51
[2024-08-18 06:54] VITALS: BP 135/51
--- NOTE | 2024-08-18 07:00 | NUR ---
SHIFT CHANGE REPORT, PT SLEEPING IN LEFT SIDED POSITION, BREATHING ENEN AND NON-LABERED, NO SIGN DISCOMFORT, IVF INFUSING, TELE MONITOR IN PLACE, CALL CALDERON IN REACH AND BED LOCKED IN LOWEST POSITION.
[2024-08-18 07:37] VITALS: BP 145/42
--- NOTE | 2024-08-18 08:00 | NUR ---
AWAKE ALERT AND ORIENTED SITTING UP AT BEDSIDE, NO C/O DISCOMFOT BUT VOICES FRUSTRATION ABOUT HER CONDITION OF HAVING ONGOING HYPOKALEMIA WHICH NO ONE SEEM TO KNOW THE ROOT CAUSE, DENIES FREQUENT DIARRHEA. PLAN OF CARE DISCUSSED, PT STATES UNDERSTANDING.
[2024-08-18 08:31] VITALS: BP 146/42
[2024-08-18] MEDS ORDERED: POTASSIUM CHLORIDE 20 MEQ/TAB PO SCH (09:00)
[2024-08-18] MEDS ORDERED: MAGNESIUM SULFATE HEPTAHYDRATE 50 ML IV SCH (09:00)
--- NOTE | 2024-08-18 10:52 | NUR ---
pt refused to have her sugar checked.
[2024-08-18] MEDS ORDERED: PANTOPRAZOLE SO40 M1 PO (13:24)
--- NOTE | 2024-08-18 15:43 | NUR ---
Discharge instructions given. Patient verbalizes understanding of same. Discharged in stable condition via Wheelchair to Home with family. All belongings sent with pt.
== END 2024-08-18 15:43 | disposition home or self-care (01) | DRG 378 ==
LOC: ED 11:28 → ED-I 12:25 → ED 13:14 → MS2 13:15
PROVIDERS: Nurse Practitioner Family; ADMIT Internal Medicine; ATTEND Internal Medicine
PROC: 30233N1 Transfusion of Nonautologous Red Blood Cells into Peripheral Vein, Percutaneous Approach (ICD-10-PCS; principal; 2024-08-15)
PROC: 30233N1 Transfusion of Nonautologous Red Blood Cells into Peripheral Vein, Percutaneous Approach (ICD-10-PCS; 2024-08-15)
PROC: 0DB68ZX Excision of Stomach, Via Natural or Artificial Opening Endoscopic, Diagnostic (ICD-10-PCS; 2024-08-16)
PROC: 0DBK8ZX Excision of Ascending Colon, Via Natural or Artificial Opening Endoscopic, Diagnostic (ICD-10-PCS; 2024-08-17)
PROC: 0DBC8ZX Excision of Ileocecal Valve, Via Natural or Artificial Opening Endoscopic, Diagnostic (ICD-10-PCS; 2024-08-17)
DX: K92.2 Gastrointestinal hemorrhage, unspecified (principal); I48.20 Chronic atrial fibrillation, unspecified; K50.10 Crohn's disease of large intestine without complications; D50.0 Iron deficiency anemia secondary to blood loss (chronic); I11.0 Hypertensive heart disease with heart failure; I50.9 Heart failure, unspecified; E11.9 Type 2 diabetes mellitus without complications; I25.10 Atherosclerotic heart disease of native coronary artery without angina pectoris; E78.5 Hyperlipidemia, unspecified; E87.6 Hypokalemia; K57.30 Diverticulosis of large intestine without perforation or abscess without bleeding; K44.9 Diaphragmatic hernia without obstruction or gangrene; K64.8 Other hemorrhoids; K64.4 Residual hemorrhoidal skin tags; Q40.8 Other specified congenital malformations of upper alimentary tract; Z95.1 Presence of aortocoronary bypass graft; Z79.02 Long term (current) use of antithrombotics/antiplatelets; Z87.11 Personal history of peptic ulcer disease; Z96.651 Presence of right artificial knee joint; Z79.4 Long term (current) use of insulin; Z20.822 Contact with and (suspected) exposure to COVID-19; Z95.818 Presence of other cardiac implants and grafts
CPT/HCPCS: J2470; J3475; P9016; Q9967

== ENCOUNTER 2024-10-25 13:47 | Emergency (ER) | payer MEDICARE ==
[2024-10-25] VITALS (13 sets, daily range): BP systolic 103–189; BP diastolic 46–107
[~2024-10-25] VITALS: Ht 165.1 cm; Wt 72.5 kg
[~2024-10-25 13:47] MED LIST changes: +ABILIFY10 MG PO; +ALDACTONE100 MG PO; +AMLODIPINE BES2.5 MG PO; +ASPIRINCHW 81MG PO; +CARVEDILOL3.125 MG PO; +PLAVIX75 MG PO
[2024-10-25] MEDS ORDERED: LIDOcaine HCl 1% (Local Anesth.) 20 ML VIAL STI STA (14:03)
[2024-10-25] MEDS ORDERED: POVIDONE IODINE 0.5 OZ/BTL TOP ONE (14:05)
[2024-10-25] MEDS ORDERED: Diph, Acellular Pertussis, Tet 0.5 ML/VIAL (Tdap) SDV IM ONE (14:05)
[2024-10-25 14:40] LABS: BASO% 0.3 % (0-3); EOS% 1.5 % (0-8); HEMATOCRIT 33.4 % (37.0-47.0); HEMOGLOBIN 10.3 g/dl (12.0-16.0); IMMATURE GRANULOCYTES 0.3 % (0.0-5.0); LYMPH% 18.4 % (15-41); MEAN CELL VOLUME 81.5 fL CALC (80.0-100.0); MEAN CORPUSCULAR HGB 25.1 pG CALC (26.0-32.0); MEAN CORPUSCULAR HGB CONC 30.8 g/dL CAL (32.0-36.0); MONO% 7.1 % (2-13); NEUT# 4.36 thou/uL (2.00-7.15); NEUT% 72.4 % (42-76); RED BLOOD COUNT 4.1 mill/uL (4.20-5.60); RED CELL DISTRI WIDTH 16.4 % (11.5-15.5)
[2024-10-25 14:53] LABS: ALKALINE PHOSPHATASE 85 u/l (38-126); BILIRUBIN, TOTAL 0.8 mg/dL (0.02-1.3); BUN 17 mg/dL (8-23); BUN/CREATININE RATIO 24 (12-20 (CALC)); CARBON DIOXIDE 24 mmol/l (22-30); CHLORIDE 100 mmol/l (95-108); CREATININE 0.7 mg/dL (0.5-1.0); ESTIMATED GFR 87 ML/MIN (>=90 (CALC)); SGOT/AST 20 u/l (9-36); SODIUM 138 mmol/l (137-146)
[2024-10-25 14:54] LABS: ALBUMIN 4.2 g/dL (3.2-5.0); ANION GAP 18 (6-22 (CALC)); POTASSIUM 3.7 mmol/l (3.5-5.1); TOTAL PROTEIN 7.5 g/dL (6.3-8.2)
[2024-10-25] MEDS ORDERED: HYDROcodone 5 MG/Acetaminophen 325 MG/COMBO PO ONE (17:25)
[2024-10-25] MEDS ORDERED: HYDROCO/APAP1 TA9 PO (18:51)
== END 2024-10-25 19:06 | disposition home or self-care (01) ==
LOC: ED 13:47
PROVIDERS: Family Medicine
PROC: 0HQ1XZZ Repair Face Skin, External Approach (ICD-10-PCS; principal; 2024-10-25)
PROC: 2W3CX1Z Immobilization of Right Lower Arm using Splint (ICD-10-PCS; 2024-10-25)
DX: S52.511A Displaced fracture of right radial styloid process, initial encounter for closed fracture (principal); S52.611A Displaced fracture of right ulna styloid process, initial encounter for closed fracture; S01.112A Laceration without foreign body of left eyelid and periocular area, initial encounter; S80.211A Abrasion, right knee, initial encounter; S60.512A Abrasion of left hand, initial encounter; S90.811A Abrasion, right foot, initial encounter; I11.0 Hypertensive heart disease with heart failure; I50.9 Heart failure, unspecified; E11.9 Type 2 diabetes mellitus without complications; I25.10 Atherosclerotic heart disease of native coronary artery without angina pectoris; W01.0XXA Fall on same level from slipping, tripping and stumbling without subsequent striking against object, initial encounter; Y92.512 Supermarket, store or market as the place of occurrence of the external cause; Z87.11 Personal history of peptic ulcer disease; Z95.818 Presence of other cardiac implants and grafts; Z79.4 Long term (current) use of insulin; Z95.1 Presence of aortocoronary bypass graft